=== PATIENT | female | born 1955 | race Caucasian/White ===

== ENCOUNTER 2017-08-19 08:35 | Observation (INO) | payer BC ==
--- NOTE | 2017-08-17 09:46 | HP ---
AMENDED REPORT NOW INCLUDES COSIGNER DESIGNATION - ESIGNED BEFORE ADJUSTMENTS CC: Dr. Brewer; Dr. Jumana Alcocer at [facility]; Nimo Person PA-C at [facility] * PREOPERATIVE HISTORY AND PHYSICAL: DATE OF ADMISSION/SURGERY: 08/19/17 DATE OF PREOPERATIVE HISTORY AND PHYSICIAN EXAMINATION: 08/16/17 This patient is scheduled for same-day surgery with overnight admission by Dr. Green on 08/19/17. ATTENDING SURGEON: Dr. Brinda Green * (dictated by Kellen Fabian NP). CHIEF COMPLAINT: Graves' disease. HISTORY OF PRESENT ILLNESS: The patient is a 62-year-old female recently evaluated by Dr. Green for Graves' disease. The patient reports that in February 2017, she was hospitalized and had abnormal thyroid lab work and was diagnosed with Graves' disease and referred to Dr. Brewer. She was started on methimazole. She reported symptoms of weight loss, weakness, night sweats, anxiety and agitation. She denies any family history of endocrinopathy and has not had radiation to the head and neck area. Dr. Green examined the patient and noted a diffusely enlarged and visible thyroid gland. Dr. Green has recommended bilateral subtotal thyroidectomy and has described the rationale for the surgery, the nature of the surgery, the overnight stay in the hospital, and the relevant risks and benefits. Today, I reviewed the expected postoperative care and recovery. The patient has had a chance to ask questions and stated that she understands the information and is satisfied with the answers given to her questions. She will sign surgical consent on the day of surgery. She underwent a thyroid ultrasound on 08/09/17, which revealed moderate thyroid gland enlargement with heterogeneous hypervascular parenchyma; no focal mass was seen. PAST MEDICAL HISTORY: Significant for hyperthyroidism, longstanding persistent atrial fibrillation, GERD, and smoking. PAST SURGICAL HISTORY: Cervical diskectomy approximately 10 years ago, laparoscopic cholecystectomy and tonsillectomy. CURRENT MEDICATIONS: 1. Metoprolol ER 50 mg p.o. daily. 2. Warfarin 6 mg daily every evening on Tuesdays, , Saturdays and Sundays and warfarin 6.5 mg every evening on Tuesday, Tuesday and Tuesday. She took her last dose of warfarin in preparation for surgery on 08/13/17 and a stat INR will be drawn on arrival on the day of surgery. 3. She also takes omeprazole 20 mg p.o. daily. 4. Methimazole 10 mg 2 tablets b.i.d. ALLERGIES: ANTIHISTAMINES caused some unspecified reaction. FAMILY HISTORY: Father with a history of heart attack and some type of cancer. Mother with a history of gallstones. No known family history of clotting disorders or bleeding tendencies or anesthesia complications. SOCIAL HISTORY: She lives alone. She is working. She smokes 1 to 2 cigarettes per day. She denies the use of alcohol or other substances. REVIEW OF SYSTEMS: Constitutional: No fevers or chills. She has experienced some weight loss since being diagnosed with hyperthyroidism. Endocrine: Hyperthyroidism as described in history of present illness, no diabetes. Hematologic: No easy bruising or bleeding while she has been on the warfarin. Respiratory: She is a smoker. She denies any dyspnea on exertion or chronic cough or hemoptysis. Cardiovascular: History of persistent atrial fibrillation with good rate control and anticoagulation and has been seen [facility]. Please see the accompanying notes and she has been deemed low risk for a major coronary event for thyroid surgery; her stress test in February 2017 revealed normal LV function and she has no hemodynamically significant valvular disease. She denies any anginal chest pain or palpitations. Gastrointestinal: No nausea, vomiting, diarrhea, GI bleeding, or constipation. No change in bowel habits. Genitourinary: No dysuria. Musculoskeletal: No chronic joint or back pain. Neurologic: No headache or blurred vision. Normal gait. No sensory problems. General: No previous anesthesia complications. No history of deep vein thrombosis or pulmonary embolism. No previous blood transfusions. PHYSICAL EXAMINATION GENERAL SURVEY: The patient is a 62-year-old female, well developed, well nourished, in no acute distress. VITAL SIGNS: Height 68 inches, weight 172 pounds, body mass index 26.1. Blood pressure 130/84, pulse 72 and regular, respiratory rate 18, temperature 97.2 tympanic. HEENT: Benign. NECK: Supple. Diffusely enlarged thyroid gland that is visible. No cervical lymphadenopathy. No supraclavicular lymphadenopathy. LUNGS: Breath sounds bilaterally clear and equal. HEART: Irregularly irregular. No murmurs or rubs appreciated. ABDOMEN: Active bowel sounds. Soft, nondistended, nontender throughout. No obvious masses or organomegaly. BACK: No CVA tenderness. PELVIC: Exam deferred. RECTAL: Exam deferred. EXTREMITIES: Warm without edema or skin ulcerations. NEUROLOGIC: Alert and oriented x3. Steady gait. SKIN: Warm, dry, intact. IMPRESSION: Thyrotoxicosis with diffuse goiter without thyrotoxic crisis or storm. PLAN: Same-day surgery admission with overnight extension to Dr. Green's service for bilateral subtotal thyroidectomy on 08/19/17. LUPILLO FABIAN, AGENT BASED MODELER [id number]/CPS #: [id number] [place]
[~2017-08-19 08:35] MED LIST: Buffered Lidocaine 0.9% SYRIN* 5 ML/SYR SYRINGE INTRADERM ONE; Famotidine IV* 10 MG/ML 2 ML (20 mg) IV ONE; Metoclopramide TAB* 10 MG PO ONE; Scopolamine 1.5 mg* PATCH TRANSDERM ONE
[2017-08-19] MEDS ORDERED: ceFAZolin 2 GM PREMIX (*) 2 GM/50 ML BAG IVPB ONE (08:53)
[2017-08-19] MEDS ORDERED: Metoclopramide TAB* 10 MG ONE (08:53)
[2017-08-19] MEDS ORDERED: Scopolamine 1.5 mg* PATCH ONE (08:53)
[2017-08-19] MEDS ORDERED: Heparin VIAL(*) 5000 UNITS/ML VIAL (FIVE THOUSAND) ONE (08:53)
[2017-08-19 09:20] LABS: INR 0.95 (0.77-1.02)
[2017-08-19] MEDS ORDERED: Propofol* 10 MG/ML 20 ML BTL IV PUSH ONE (09:36)
[2017-08-19] MEDS ORDERED: Ondansetron INJ* 2 MG/ML VIAL ONE (09:36)
[2017-08-19] MEDS ORDERED: Dexamethasone IV* 4 MG/ML 1 ML (4 MG) ONE (09:36)
[2017-08-19] MEDS ORDERED: fentaNYL* 50 MCG/ML 2 ML VIAL (100 MCG VIAL) ONE ×4 (09:36→15:16)
[2017-08-19] MEDS ORDERED: Lidocaine 2% PF * 5 ML VIAL ONE (09:36)
[2017-08-19] MEDS ORDERED: Cisatracurium* 2 MG/ML MDV 5 ML ONE (09:37)
[2017-08-19] MEDS ORDERED: Midazolam* 1 MG/ML 5 ML VIAL (5 MG) ONE (09:37)
[2017-08-19] MEDS ORDERED: Glycopyrrolate IV* 0.2 MG/ML 1 ML VIAL ONE (09:56)
[2017-08-19] MEDS ORDERED: Neostigmine Methylsulfate* 2 MG/2 ML SYRINGE ONE (09:56)
[2017-08-19] MEDS ORDERED: Phenylephrine 1% NASAL* 15 ML BOT ONE (10:14)
[2017-08-19] MEDS ORDERED: Bupivacaine 0.25% W/EPI* 10 ML SDV ONE (10:53)
[2017-08-19] MEDS ORDERED: Artificial Tear OPHTH.OINT* 3.5 GM ONE (11:14)
[2017-08-19] MEDS ORDERED: Bupivacaine 0.25% SDV PF* 10 ML VIAL INJ ONE (11:54)
[2017-08-19] MEDS ORDERED: Phenylephrine IV* 40 MCG/ML 10 ML SYRINGE ONE (12:06)
[2017-08-19] MEDS ORDERED: Ondansetron INJ* 2 MG/ML VIAL IV PRN ×2 (12:34→13:54)
[2017-08-19] MEDS ORDERED: Naloxone* 0.4 MG/ML 1 ML VIAL IV PRN (12:34)
[2017-08-19] MEDS ORDERED: Metoprolol Tartrate IV* 1 MG/ML 5 ML VIAL ONE (13:12)
[2017-08-19] MEDS ORDERED: Docusate CAP* 100 MG PO PRN (13:54)
[2017-08-19] MEDS ORDERED: Acetaminophen ADULT LIQ* 650 MG/20.3 ML UDC PO PRN (14:04)
--- NOTE | 2017-08-19 14:15 | OP ---
Operative Report - Blank - Operative Report Date of Operation: 08/19/17 Note: Brief Operative Note: Pre-op: Graves disease Post-op: Same Procedure: Subtotal thyroidectomy Surgeon: Dr. Green Boat Detailer: KAREY London Anesthesia: GETA EBL: 100 cc Drains: None Catheter: None Specimen: Thyroid gland Findings: See op note
[2017-08-19] MEDS: fentaNYL* 50 MCG/ML 2 ML VIAL (100 MCG VIAL) IV PRN ×4 (14:30→15:44)
[2017-08-19] MEDS ORDERED: HYDROcodone/ACET. 7.5/325 LIQ* 15 ML UDC ONE (15:16)
[2017-08-19] MEDS: HYDROcodone/ACET. 7.5/325 LIQ* 15 ML UDC PO PRN ×2 (15:18→21:23)
[2017-08-19] MEDS: Morphine VIAL* 4 MG/ML VIAL (1 ml vial) IV PRN (19:34)
[2017-08-19] MEDS ORDERED: Calcium Carbonate CHEW TAB* 500 MG (TUMS) PO SCH (22:00)
[2017-08-20] MEDS: Calcium Carbonate LIQ* 1,250 MG/5 ML UDC PO SCH ×3 (02:53→20:07)
--- NOTE | 2017-08-20 04:04 | OP ---
CC: [facility]; Dr. Ender Brewer; Nimo Person PA-C. OPERATIVE REPORT: DATE OF OPERATION: 08/19/17 DATE OF : 53 SURGEON: Brinda Green MD SHOPPING INVESTIGATOR: KAREY Hathaway and KAREY Barnett student PRE-OP DIAGNOSIS: Graves' disease. POST-OP DIAGNOSIS: Graves' disease. OPERATIVE PROCEDURE: Bilateral subtotal thyroidectomy. INDICATIONS: Ms. Smith is a 62-year-old woman recently diagnosed with Graves' disease prompting the plan for surgical intervention. DESCRIPTION OF PROCEDURE: She was brought to the operating room, placed on the OR table in a supine position and given general anesthesia. The neck was prepped and draped in usual sterile fashion. Af ter infiltrating with local anesthetic, an incision was made along the line that have been marked pre operatively. Subcutaneous tissue was then divided with electrocautery through the platysma muscle. F laps were then developed superiorly to the thyroid notch and inferiorly to the sternal notch. The st rap muscles were divided along the midline and then retracted laterally first over the right side of the gland. Dissection was begun in the superior pole where vessels that approached the gland first f rom the medial aspect were taken down between ligature and clip. This was made somewhat difficult by the friable nature of the vessels, which necessitated clipping sometimes rather than ligature. Ulti mately the superior pole of the right side was freed up adequately and then attention was turned to t he inferior pole. Here the individual vessels were divided with the ligature and then this mobility allowed the gland to be elevated anteriorly exposing the lateral vessels. These were divided individ ually as they approach gland and then a search was made for the recurrent laryngeal nerve, it should be mentioned that 2 structures consistent with parathyroid tissue were identified and preserved. The recurrent laryngeal nerve with likewise was identified and noted to pass very closely to the thyroid gland as it entered the trachea, but since this was recognized, the nerve was preserved throughout i ts course. Attachments of the gland to the trachea were taken down with clips in this area and ultim ately the gland was freed up enough to divide portion of it with electrocautery keeping clear of the nerve. This left a small amount of thyroid tissue in the right thyroid bed. The rest of the thyroid on the right side was elevated off the trachea and divided from the trachea using electrocautery unt il the far end of the isthmus was reached, then attention was turned to the left side. Here again ve ssels were quite friable and there is moderate amount of bleeding during the procedure but ultimately the upper pole was taken down in a similar fashion and then attention was turned to lower pole and h ere vessels were divided with ligature and then attention was turned to the middle portion of the gla nd. This has been difficult by ongoing friability of the vessels and we then having to go backup to the superior pole to release a few more attachments posteriorly, but once these were released there w as fair mobility of the gland and again the search was made in the middle portion for the nerve and t he parathyroid glands and one parathyroid on the left side was positively identified and the recurren t laryngeal nerve was positively identified, also traveling close to the thyroid gland. Careful diss ection of the thyroid gland from the trachea was undertaken and on the side almost all of the thyroid gland was able to be removed. Once it was free of the nerve, dissection from the trachea was accompl ished with electrocautery and the specimen was handed off as bilateral subtotal thyroidectomy. The wo und was inspected for hemostasis and irrigated copiously with saline to demonstrate adequate hemostas is. The right side had Surgicel placed in it while operating on the left side and the hemostasis on the right side appeared good. Some additional clips had to be placed on left side to obtain hemostasi s and then some Surgicel was placed on the left side as well. This appeared to produce excellent hem ostasis then closure was accomplished. The straps muscles were reapproximated with 3-0 Vicryl. The platysma muscle was reapproximated with 4-0 Vicryl and then the skin was closed with 4-0 Prolene in t he subcuticular fashion. Steri-Strips and a dry fluffy dressing were applied. All sponge and instrum ent counts were correct. The patient tolerated the procedure well and was transferred to Recovery in a stable condition. [id number]/[facility] #: [id number]
[2017-08-20] MEDS: HYDROcodone/ACET. 7.5/325 LIQ* 15 ML UDC PO PRN ×4 (04:53→23:56)
[2017-08-20 05:48] LABS: ABS Basophils 0 10^3/ul (0-0.2); ABS Eosinophils 0 10^3/ul (0-0.6); ABS Lymphocytes 1.4 10^3/ul (1.0-4.8); ABS Monocytes 0.6 10^3/ul (0-0.8); ABS Neutrophils 5.3 10^3/ul (1.5-7.7); ABS Nucleated RBC 0 10^3/ul; Eosinophil % 0.1 % (0-6); Hematocrit 31 % (35-47); Hemoglobin 10.5 g/dl (12.0-16.0); Lymphocyte % 19.6 % (25-47); Mean Corpuscular HGB Conc 33 g/dl (31-36); Mean Corpuscular Hemoglobin 27 pg (27-31); Mean Corpuscular Volume 79 fL (80-97); Nucleated Red Blood Cells % 0; Platelet Count 161 10^3/ul (150-450); Red Blood Count 3.96 10^6/ul (4.00-5.40); Red Cell Distribution Width 17 % (10.5-15); White Blood Count 7.3 10^3/ul (3.5-10.8)
[2017-08-20 06:08] LABS: EGFR Non-African American 137.2 (>60)
[2017-08-20] MEDS: Omeprazole CAP* 20 MG PO SCH (07:26)
[2017-08-20] MEDS: Morphine VIAL* 4 MG/ML VIAL (1 ml vial) IV PRN (08:23)
[2017-08-20] MEDS: Metoprolol Succinate XL TAB* 50 MG PO SCH (09:18)
--- NOTE | 2017-08-20 09:24 | PN ---
Progress Note - Progress Note Date of Service: 08/20/17 Note: Surgery Ms. Smith denies problems. She denies pain, numbness, tingling. Vital Signs 08/19/17 08/19/17 08/19/17 14:03 14:04 14:06 Temperature Pulse Rate 104 97 96 Respiratory Rate Blood Pressure 155/121 157/117 (mmHg) O2 Sat by Pulse 97 97 96 Oximetry 08/19/17 08/19/17 08/19/17 14:07 14:10 14:15 Temperature 98.1 F Pulse Rate 92 98 97 Respiratory 14 Rate Blood Pressure 157/117 166/91 157/125 (mmHg) O2 Sat by Pulse 98 95 97 Oximetry 08/19/17 08/19/17 08/19/17 14:19 14:21 14:26 Temperature Pulse Rate 94 93 97 Respiratory 13 10 12 Rate Blood Pressure 170/107 151/99 163/102 (mmHg) O2 Sat by Pulse 97 97 97 Oximetry 08/19/17 08/19/17 08/19/17 14:30 14:31 14:46 Temperature Pulse Rate 96 93 Respiratory 22 12 15 Rate Blood Pressure 167/111 165/112 (mmHg) O2 Sat by Pulse 96 93 Oximetry 08/19/17 08/19/17 08/19/17 14:50 15:00 15:01 Temperature Pulse Rate 89 93 Respiratory 18 18 13 Rate Blood Pressure 135/99 (mmHg) O2 Sat by Pulse 90 94 Oximetry 08/19/17 08/19/17 08/19/17 15:16 15:18 15:31 Temperature Pulse Rate 83 82 Respiratory 15 14 17 Rate Blood Pressure 149/98 155/93 (mmHg) O2 Sat by Pulse 95 97 Oximetry 08/19/17 08/19/17 08/19/17 15:44 15:46 16:08 Temperature 97.3 F Pulse Rate 75 87 Respiratory 20 16 20 Rate Blood Pressure 146/73 145/91 (mmHg) O2 Sat by Pulse 92 99 Oximetry 08/19/17 08/19/17 08/19/17 16:12 16:18 17:00 Temperature 97.3 F 98.9 F Pulse Rate 87 77 Respiratory 18 20 16 Rate Blood Pressure 145/91 140/78 (mmHg) O2 Sat by Pulse 99 94 Oximetry 08/19/17 08/19/17 08/19/17 18:00 19:08 19:14 Temperature 98.1 F 97.2 F Pulse Rate 85 76 Respiratory 16 18 18 Rate Blood Pressure 121/72 137/85 (mmHg) O2 Sat by Pulse 96 98 Oximetry 08/19/17 08/19/17 08/19/17 19:20 19:34 20:06 Temperature Pulse Rate Respiratory 18 18 18 Rate Blood Pressure (mmHg) O2 Sat by Pulse Oximetry 08/19/17 08/19/17 08/19/17 20:13 21:23 21:37 Temperature 98.2 F Pulse Rate 80 Respiratory 16 18 18 Rate Blood Pressure 140/68 (mmHg) O2 Sat by Pulse 95 Oximetry 08/19/17 08/20/17 08/20/17 22:18 01:31 01:58 Temperature 98.8 F 97.7 F Pulse Rate 86 61 Respiratory 18 18 Rate Blood Pressure 143/68 111/63 (mmHg) O2 Sat by Pulse 97 98 98 Oximetry 08/20/17 08/20/17 08/20/17 02:58 04:48 04:53 Temperature 98.0 F Pulse Rate 71 Respiratory 18 18 18 Rate Blood Pressure 142/67 (mmHg) O2 Sat by Pulse 98 Oximetry 08/20/17 08/20/17 08/20/17 07:25 07:30 07:31 Temperature 98.9 F Pulse Rate 88 Respiratory 16 18 18 Rate Blood Pressure 134/96 (mmHg) O2 Sat by Pulse 95 98 Oximetry 08/20/17 08:23 Temperature Pulse Rate Respiratory 20 Rate Blood Pressure (mmHg) O2 Sat by Pulse Oximetry Incision site is clean and dry Neg. Chvostek's sign Intake & Output 08/19/17 08/20/17 08/20/17 22:59 06:59 14:59 Intake Total 560 1180 Output Total 900 650 Balance -340 530 Intake: IV Fluids 980 LR 980 Oral 560 200 Output: Urine 900 650 Laboratory Results - last 24 hr 08/19/17 08/19/17 08/20/17 14:25 20:15 02:20 WBC RBC Hgb Hct MCV MCH MCHC RDW Plt Count MPV Neut % (Auto) Lymph % (Auto) [place] % (Auto) Eos % (Auto) Baso % (Auto) Absolute Neuts (auto) Absolute Lymphs (auto) Absolute Monos (auto) Absolute Eos (auto) Absolute Basos (auto) Absolute Nucleated RBC Nucleated RBC % Sodium Potassium Chloride Carbon Dioxide Anion Gap BUN Creatinine Est GFR ( Amer) Est GFR (Non-Af Amer) BUN/Creatinine Ratio Glucose Calcium 8.7 8.2 L 7.8 L 08/20/17 08/20/17 08/20/17 05:30 05:30 08:08 WBC 7.3 RBC 3.96 L Hgb 10.5 L Hct 31 L MCV 79 L MCH 27 MCHC 33 RDW 17 H Plt Count 161 MPV 8.0 Neut % (Auto) 72.1 Lymph % (Auto) 19.6 L [place] % (Auto) 7.8 H Eos % (Auto) 0.1 Baso % (Auto) 0.4 Absolute Neuts (auto) 5.3 Absolute Lymphs (auto) 1.4 Absolute Monos (auto) 0.6 Absolute Eos (auto) 0 Absolute Basos (auto) 0 Absolute Nucleated RBC 0 Nucleated RBC % 0 Sodium 140 Potassium 3.4 L Chloride 108 Carbon Dioxide 26 Anion Gap 6 BUN 9 Creatinine 0.46 L Est GFR ( Amer) 166.0 Est GFR (Non-Af Amer) 137.2 BUN/Creatinine Ratio 19.6 Glucose 128 H Calcium 7.9 L 7.9 L POD#1 s/p bilateral subtotal thyroidectomies doing well but somewhat hypocalcemic. Will continue to check calciums until it seems to be responding to calcium suspension, then can go home. CLFoster
[2017-08-20] MEDS: Potassium Chloride LIQUID* 20 MEQ PACKET PO SCH (09:59)
[2017-08-21] MEDS: Calcium Carbonate LIQ* 1,250 MG/5 ML UDC PO SCH ×2 (03:29→11:47)
[2017-08-21] MEDS: HYDROcodone/ACET. 7.5/325 LIQ* 15 ML UDC PO PRN (06:31)
--- NOTE | 2017-08-21 07:25 | PN ---
Progress Note - Progress Note Date of Service: 08/21/17 Note: Surgery Ms. Smith denies any problems. She is not having pain and is not experiencing numbness or tingling. The scopolamine patch fell off this morning. Vital Signs 08/20/17 08/20/17 08/20/17 07:25 07:30 07:31 Temperature 98.9 F Pulse Rate 88 Respiratory 16 18 18 Rate Blood Pressure 134/96 (mmHg) O2 Sat by Pulse 95 98 Oximetry 08/20/17 08/20/17 08/20/17 08:23 09:55 11:20 Temperature Pulse Rate Respiratory 20 18 18 Rate Blood Pressure (mmHg) O2 Sat by Pulse Oximetry 08/20/17 08/20/17 08/20/17 11:56 14:08 15:12 Temperature 98.3 F 98.3 F Pulse Rate 90 86 Respiratory 16 20 18 Rate Blood Pressure 106/55 125/70 (mmHg) O2 Sat by Pulse 98 98 Oximetry 08/20/17 08/20/17 08/20/17 16:00 17:23 19:51 Temperature 97.6 F Pulse Rate 78 Respiratory 20 20 Rate Blood Pressure 125/75 (mmHg) O2 Sat by Pulse 98 98 Oximetry 08/20/17 08/20/17 08/20/17 20:14 20:30 21:27 Temperature Pulse Rate Respiratory 20 20 18 Rate Blood Pressure (mmHg) O2 Sat by Pulse Oximetry 08/20/17 08/20/17 08/21/17 23:50 23:56 02:00 Temperature 98.8 F Pulse Rate 94 Respiratory 16 16 18 Rate Blood Pressure 154/87 (mmHg) O2 Sat by Pulse 98 Oximetry 08/21/17 08/21/17 03:19 06:31 Temperature 98.2 F Pulse Rate 91 Respiratory 22 18 Rate Blood Pressure 124/77 (mmHg) O2 Sat by Pulse 94 Oximetry incision: clean and dry Neg. Chvostek's sign Laboratory Results - last 24 hr 08/20/17 08/20/17 08/20/17 08:08 13:50 20:17 Calcium 7.9 L 7.8 L 7.8 L 08/21/17 05:28 Calcium 7.2 L A/P: POD#2 s/p bilateral subtotal thyroidectomies. Calcium has not been responding to oral replacement, which should be better without the scopolamine, but which needs addressing. Will provide a dose of IV Calcium. Continue to monitor with q6H checks.
[2017-08-21] MEDS ORDERED: Calcium CHLORIDE 10% SYRINGE* 1 GM in D5W 100 ML BAG* 100 ML IV ONE (07:30)
[2017-08-21] MEDS: Omeprazole CAP* 20 MG PO SCH (07:49)
[2017-08-21] MEDS: Potassium Chloride LIQUID* 20 MEQ PACKET PO SCH (08:24)
[2017-08-21] MEDS: Metoprolol Succinate XL TAB* 50 MG PO SCH (08:32)
[2017-08-21] MEDS ORDERED: Calcitriol CAP* 0.25 MCG PO SCH (09:00)
[2017-08-21 13:20] VITALS: BP 129/85
[2017-08-22] MEDS ORDERED: Scopolamine PATCH Remove* 1 NOTE MISC PATCH OFF ONE (06:00)
--- NOTE | 2017-08-22 10:08 | DS ---
CC: Dr. Ender Brewer; Nimo Person PA-C. * DISCHARGE SUMMARY: DATE OF ADMISSION: 08/19/17 DATE OF DISCHARGE: 08/21/17 ADMISSION DIAGNOSIS: Thyrotoxicosis with goiter. DISCHARGE DIAGNOSIS: Thyrotoxicosis with goiter. PROCEDURE: During the hospitalization included bilateral subtotal thyroidectomy. HOSPITAL COURSE: Ms. Smith is a 62-year-old woman with a history of Graves ' disease prompting a plan for surgical intervention. She underwent bilateral subtotal thyroidectomy on the date of admission and then was admitted for overnight observation of her calcium. Her calcium did not come up appropriately until the 2nd day postoperatively when after discontinuing scopolamine and given her a dose of IV calcium, she had an appropriate rise in calcium level. She was, therefore, considered stable for discharge and was discharged to home with instructions to follow up as an outpatient. [id number]/[facility]PS #: [id number] MTDD
== END 2017-08-21 15:50 | disposition home or self-care (01) ==
LOC: OR 08:35 → EDSTATUS 10:45 → SSU 16:13
PROVIDERS: ADMIT Surgery; ATTEND Surgery
PROC: 0GBH0ZZ Excision of Right Thyroid Gland Lobe, Open Approach (ICD-10-PCS; 2017-08-19)
PROC: 0GBJ0ZZ Excision of Thyroid Gland Isthmus, Open Approach (ICD-10-PCS; 2017-08-19)
PROC: 0GBG0ZZ Excision of Left Thyroid Gland Lobe, Open Approach (ICD-10-PCS; principal; 2017-08-19 10:45)
DX: E05.00 Thyrotoxicosis with diffuse goiter without thyrotoxic crisis or storm (principal); F17.210 Nicotine dependence, cigarettes, uncomplicated; Z79.01 Long term (current) use of anticoagulants; I48.91 Unspecified atrial fibrillation; Z87.19 Personal history of other diseases of the digestive system; E05.90 Thyrotoxicosis, unspecified without thyrotoxic crisis or storm
CPT/HCPCS: 36415; 80048; 82040; 82310; 82330; 85025; 85610; 88307; A9270-GY; G0378; J0690; J1100; J1644; J2250; J2270; J2405; J2704; J3010; J3490

== ENCOUNTER 2017-08-22 08:28 | Inpatient (IN) | payer BC ==
--- OUTSIDE RECORDS SUMMARY | 2017-08-22 12:35 | XMS REPORT ---
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 Active Onset: 12/18/2010 Premature beats Josie Ji M.D. Active Onset: 12/18/2010 Candidal vulvovaginitis Josie Ji M.D. Active Onset: 03/05/2011 Hyperlipidemia Josie Ji M.D. Active Onset: 03/05/2011 Coronary arteriosclerosis Josie Ji M.D. Active Onset: 03/10/2011 Chest pain Mihir Milner M.D. Active Onset: 03/10/2011 Benign essential hypertension Mihir Milner M.D. Active Onset: 03/10/2011 Dyspnea Mihir Milner M.D. 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 they are the reason she wants to stop smoking and keep on going employed for 10 years at [employer] 02/08 ppd x 35 years ( quit 02/2011) hx of etoh abuse occasional mj 5 cups of coffee daily Allergies, Adverse Reactions, Alerts Date Description Reaction Status Severity Comments 12/18/2010 Antihistamines diarrhea active Mild to Moderate 12/18/2010 NKDA inactive Medications Medication Date Status Form Strength Qnty SIG Indications Ordering Provider Metoprolol / Active Tablets ER 50mg 1 by mouth Unknown Succinate ER 0000 24HR every day Omeprazole / Active Capsules 20mg 1 by mouth Unknown 0000 DR every day Warfarin Sodium / Active Tablets 6mg take 1 Unknown 0000 tablet by mouth once daily every evening or as directed. M-W-F 6.5 mg and 6mg other days Methimazole / Active Tablets 10mg Take Two Unknown 0000 Tablets By Mouth Twice A Day Aspirin 03/10/ Hx Tablets DR 81mg 90tabs 1 po qd Rejitacarolina Milner M.D. Nitrostat 03/10/ Hx Tablets 0.4mg 50tabs one sl 414.0 Neymar 2012 Sub q5min up Khalif Sanchez, to 3 doses M.DDiann,FACP prn Simvastatin 03/05/ Hx Tablets 40mg 90tabs 1 po qhs 272.4 Josie Ji M.D. Nitroglycerin 03/05/ Hx Solution 0.4mg/Spra 4.900g [place] 1 414.0 Josie Lingual 2012 - y m spray Garrison 03/10/ under the Rafael 2012 tongue one time for chest pain Lisinopril 03/05/ Hx Tablets 5mg 30tabs take 1 414.0 Josie [place] tablet Garrison orally M.DDiann once a day Nicotine 12/18/ Hx Patches 14mg/24HR 14unit apply 1 305.1 Josie 2010 - 24HR s patch Garrison 03/05/ topically M.DDiann 2011 every 24 hours for two weeks than switch to 7mg Nicotine Patches 7mg/24HR 7units apply one 305.1 Josie 2010 - 24HR patch Ji, 03/05/ daily for .D2011 1 week, then stop. Diflucan Hx Tablets 150mg 6tabs 1 tablet 112.1 Josie 2010 - daily for Ji, 03/05/ 3 days M.D. 2011 Gabapentin Hx Tablets 600mg 180tab take one Unknown 0000 s tablet by mouth four times a day Methocarbamol / Hx Tablets 750mg 30tabs take one Unknown 0000 to two tablets by mouth every 6 hrs as needed-max imum daily dose of 5 per day. Pain Aid / Hx as needed Unknown 0000 Furosemide / Hx Tablets 20mg 1 by mouth Unknown 0000 every day Warfarin Sodium / Hx Tablets 3.5mg 1 tab Unknown 0000 every night or as directed Immunizations CPT Code Status Date Vaccine Lot # [id number] Given 12/18/2010 Pneumonia Vaccine [id number] Given 12/18/2010 Tdap - Tetanus/Diptheria/Acellular Pertussis [id number] Given 12/18/2010 Influenza Virus 3Yrs & Over [id number] Vital Signs Date Vital Result Comment 08/02/2017 Height 68 inches 5'8" Weight 172.00 lb Heart Rate 100 /min BP Systolic Sitting 120 mmHg BP Diastolic Sitting 82 mmHg Respiratory Rate 18 /min Body Temperature 98.0 F BMI (Body Mass Index) 26.1 kg/m2 03/19/2011 Height 68 inches 5'8" Weight 239.00 lb Heart Rate 52 /min irregular BP Systolic Sitting 130 mmHg R BP Diastolic Sitting 74 mmHg R BMI (Body Mass Index) 36.3 kg/m2 03/10/2011 Height 68 inches 5'8" Weight 242.00 lb Heart Rate 62 /min BP Systolic Sitting 140 mmHg BP Diastolic Sitting 80 mmHg BMI (Body Mass Index) 36.8 kg/m2 03/05/2011 Height 66.75 inches 5'6.75" Weight 239.00 lb Heart Rate 70 /min BP Systolic Sitting 138 mmHg BP Diastolic Sitting 82 mmHg BMI (Body Mass Index) 37.7 kg/m2 12/18/2010 Height 66.75 inches 5'6.75" Weight 232.00 lb Heart Rate 68 /min BP Systolic Sitting 132 mmHg BP Diastolic Sitting 80 mmHg O2 % BldC Oximetry 95 % at rest BMI (Body Mass Index) 36.6 kg/m2 Results Test Date Test Result H/L Range Note Cath Panel 03/10/2011 PTT (Aptt) 28.7 25.15-38.53 CBC With Manual Diff 03/10/2011 White Blood Count 8.3 CUMM 4.8-10.8 Red Cell Count 4.15 CUMM Low 4.2-5.4 Hemoglobin 12.9 g/dL 12.0-16.0 Hematocrit 37 % 35-47 Mean Corpuscular Volume 89 um3 79-97 Mean Corpuscular Hemoglob 31 pg 27-31 Mean Corpuscular HGB Cone 35 g/dL 32-36 Redcell Distribution WDTH 14 % 10.5-15 Platelet Count 240 CUMM 150-450 Mean Platelet Volume 9.2 um3 7.4-10.4 Polysegmented Neutrophil 60 % 38-83 Band Neutrophil 1 % 0-8 Lymphocyte 35 % 25-47 Monocyte 3 % 0-13 Eosinophil 1 % 0-6 Absolute Neutrophil Count 5.0 RBC Morphology NORMAL Basic Metabolic Panel 03/10/2011 Sodium 138 mmol/L 135-145 Potassium 4.0 mmol/L 3.5-5.0 Chloride 108 mmol/L 101-111 Co2 (Carbon Dioxide) 23.0 mmol/L 22-32 Anion Gap 7.0 mmol/L 2-11 1 Glucose 146 mg/dL High 70-100 BUN 21 mg/dL 6-24 Creatinine 0.9 mg/dL 0.50-1.40 One Over Creatinine 1.11 BUN/Creatinine Ratio 23.3 High 8-20 Calcium 9.1 mg/dL 8.1-9.9 eGFR Non- 64.5 > 60 eGFR 83.0 > 60 2 Protime 03/10/2011 Inr 0.94 0.88-1.13 3 Protime 11.1 SEC 10.3-13.5 4 Laboratory test finding 12/24/2010 TSH 0.82 MIU/ML 0.34-5.60 Thyroxine Free 1.05 ng/dL 0.61-1.24 Lipid Profile (Trig/Chol/HDL) 12/24/2010 Triglyceride 67 mg/dL 40-200 Cholesterol 229 mg/dL High Less Than 200 5 High Density Lipoprotein 50 mg/dL 40-60 6 Cholesterol/HDL Ratio 4.58 AVERAGE High 1-4.44 Low Density Lipoprotein 166 mg/dL High Less Than 100 7 Comp Metabolic Panel 12/24/2010 Sodium 138 mmol/L 135-145 Potassium 4.3 mmol/L 3.5-5.0 Chloride 107 mmol/L 101-111 Co2 (Carbon Dioxide) 25.0 mmol/L 22-32 Anion Gap 6.0 mmol/L 2-11 8 Glucose 97 mg/dL 70-100 BUN 10 mg/dL 6-24 Creatinine 0.8 mg/dL 0.50-1.40 One Over Creatinine 1.25 BUN/Creatinine Ratio 12.5 8-20 Calcium 8.9 mg/dL 8.1-9.9 Total Protein 6.5 GM/DL 6.2-8.1 Albumin 3.8 GM/DL 3.6-5.4 Globulin 2.7 GM/DL 2-4 Albumin/Globulin Ratio 1.4 1-3 Bilirubin Total 0.8 mg/dL 0.4-1.5 9 Alkaline Phosphatase 66 U/L 30-110 Alt (SGPT) 14 U/L 14-54 Ast (Sgot) 16 U/L 12-42 eGFR Non- 74.2 > 60 eGFR 95.4 > 60 10 Lipid Panel - [facility] 12/24/2010 CPK (Creatine Kinase) 77 U/L 0-170 Urinalysis 12/18/2010 Ua Color YELLOW Yellow Appearance-Urine CLEAR Clear Specific [place]-Ur 1.012 1.010-1.030 Esterase-Urine NEGATIVE Negative Nitrite NEGATIVE Negative Zioncsgavigg-Gu-EDU NEGATIVE Negative Protein-Urine NEGATIVE Negative PH-Urine 5.5 5-9 Blood-Urine NEGATIVE Negative Ketones-Urine TRACE Negative Bilirubin-Ur NEGATIVE Negative Glucose-Urine NEGATIVE Negative Laboratory test finding 12/18/2010 Cytology <SEE NOTE> 11 1 Anion gap measurement may be of limited value in the presence of any alkalosis, especially in a combined acid base disorder. . 2 Because ethnic data is not always readily available, this report includes an eGFR for both -Americans and non- Americans. The National Kidney Disease Education Program (NKDEP) does not endorse the use of the MDRD equation for patients that are not between the ages of 18 and 70, are , have extremes of body size, muscle mass, or nutritional status, or are non- or non-. According to the National Kidney Foundation, irrespective of diagnosis, the stage of the disease is based on the level of kidney function: Stage Description GFR(mL/min/1.73 m(2)) 1 Kidney damage with normal or decreased GFR 90 2 Kidney damage with mild decrease in GFR 60-89 3 Moderate decrease in GFR 30-59 4 Severe decrease in GFR 15-29 5 Kidney failure <15 (or dialysis) 3 Recommended INR for Patients on Oral Anticoagulants Prophylaxis 2.0 - 3.0 Treatment of thrombosis 2.0 - 3.0 Prevention of embolism 2.0 - 3.0 Prevention of embolism from prosthetic heart valves 2.5 - 3.5 4 DIAGNOSIS,TREATMENT,AND THERAPY MUST BE BASED ON THE INR VALUE ALONE. 5 CHOLESTEROL INTERPRETATION: Desirable: Less than 200 MG/DL Borderline-High Risk: 200-239 MG/DL High-Risk: 240 MG/DL and over 6 HDL INTERPRETATION: Undesirable: High Risk: Less than 40 MG/DL Desirable: Low Risk: Greater than 60 MG/DL 7 LDL INTERPRETATION: Low Risk Optimal Level: LDL Less than 100 MG/DL Near or Above Optimal: LDL 100-129 MG/DL Borderline High Risk: LDL 130-159 MG/DL High Risk: LDL 160-189 MG/DL Very High Risk: LDL Greater than 189 MG/DL 8 Anion gap measurement may be of limited value in the presence of any alkalosis, especially in a combined acid base disorder. . 9 A metabolite of Naproxen, O-desmethylnaproxen, has been shown to interfere with the Jendrassik-Stonega method for measuring total bilirubin. Samples from patients who have taken Naproxen have shown spurious elevation in total bilirubin levels. 10 Because ethnic data is not always readily available, this report includes an eGFR for both -Americans and non- Americans. The National Kidney Disease Education Program (NKDEP) does not endorse the use of the MDRD equation for patients that are not between the ages of 18 and 70, are , have extremes of body size, muscle mass, or nutritional status, or are non- or non-. According to the National Kidney Foundation, irrespective of diagnosis, the stage of the disease is based on the level of kidney function: Stage Description GFR(mL/min/1.73 m(2)) 1 Kidney damage with normal or decreased GFR 90 2 Kidney damage with mild decrease in GFR 60-89 3 Moderate decrease in GFR 30-59 4 Severe decrease in GFR 15-29 5 Kidney failure <15 (or dialysis) 11 ---- RUN DATE: 12/21/10 [facility] NMI LIVE PAGE 1 RUN TIME: 1510 Specimen Inquiry RUN USER: INTERFACE -- Name: KRYSTINASABRINA A Status: REG REF Re12/18/10 Age/Sex: 55/F Unit#: [id number] Location: [facility] : 53 -- Specimen: [id number] SOUT Spec Date: 12/18/[address]: Josie Ji MD Spec Type: CYTOLOGY Received: 12/21/10-1049 Copies to: SOURCE ECTOCERVICAL/ENDOCERVICAL Thin Prep with Reflex HPV Test PATIENT INFORMATION ACTUAL COLLECTION DATE: 12/18/10 ? No POST MENOPAUSAL? Yes HYSTERECTOMY? No PATIENT HISTORY: Last menstrual period 2005 ADEQUACY OF SPECIMEN Satisfactory for evaluation * Transformation zone component identified * DIAGNOSIS NEGATIVE FOR INTRAEPITHELIAL LESION OR MALIGNANCY * This Pap test was evaluated with the assistance of the ThinPrep Pap Test Imaging System. The Pap Smear is a screening test designed to aid in the detection of premalign ant and malignant conditions of the uterine cervix. It is not a diagnostic procedure a nd should not be used as the sole means of detecting cervical cancer. Both false- positiv e and false-negative reports do occur. Depending on your risk status, a Pap smear linda uld be obtained and evaluated every one to three years. Initial evaluation performed by Andrew LOPEZ(ASCP) 12/21/10 Final Interpretation electronically signed by: Andrew LOPEZ(ASCP) 12/21/10 1510 -- -- DEPARTMENT OF PATHOLOGY, [address] [place] [address] [facility] Permit #[id number] Galileo Yousif M.D. Director Rosa Maria Bui M.D. Dehydration Unit Operator Dir araceli -- Procedures Date CPT Code Description Status 03/12/2011 24849 Left Heart Cath. Incl S/I Coronaries, Angio S/I V Gram Completed If Done 03/12/2011 84970 Cath PLMT&NJX L Ventriculog Img S&I Completed 03/12/2011 53494 Left Health Catheterization W/Inj For Left Completed Ventriculography,S&I 02/25/2011 24838 Treadmill Interp/Report Only Completed 02/25/2011 36019 Stress Test Supervsn W/Out I/R Completed 02/24/2011 21202 EKG, Interpretation Only Completed 02/10/2011 Mammogram Completed 01/07/2011 33902 ECHO Transthoracic, Real-Time 2D With Doppler And Color Completed Flow 12/30/2010 20872 ECHO Stress Test Incl Perf Contiuous ekg Monitoring Completed W/Phys Superv 12/29/2010 05165 Holter Monitor Review (24 hr)dr review & interp only Completed 12/28/2010 39920 Holter Monitor Completed 12/18/2010 57185 EKG Tracing & Interpretation Completed Encounters Type Date Location Provider CPT E/M Dx Office Visit 03/19/2011 3:40p [facility] Mihir SDiann Milner, 38187 401.1 M.D. 414.0 272.4 Office Visit 03/12/2011 11:30a [facility] Rejitaybkeith S. Perlaah, 13935 794.31 M.D. 786.50 427.69 272.4 401.1 Office Visit 03/10/2011 11:00a [facility] Rejitaybkeith SDiann Milner, 15766 786.50 M.D. 401.1 786.05 Office Visit 03/05/2011 3:40p [facility] - Josie Ji M.D. 04853 272.4 [place] 305.1 414.0 Office Visit 02/25/2011 8:30a [facility] Mihir Milner, 09643 794.31 M.D. 786.50 427.69 401.1 272.4 Office Visit 12/30/2010 12:00p [facility] Kirtkeith Milner, 36700 427.69 M.D. 786.50 794.31 Office Visit 12/18/2010 11:00a DO Not Use [facility] Josie Ji M.D. 58263 305.1 427.69 V76.10 V76.2 V72.31 466.0 V04.81 V06.1 V03.82 112.1 401.9 Plan of Care Future Appointment(s):08/16/2017 11:00 am - Kellen Iqbal NP at [facility]08/19/2017 11:00 am - Brinda Green MD at [facility]08/02/2017 - Brinda Green MDE05.00 Thyrotoxicosis w diffuse goiter w/o thyrotoxic crisisFollow up:for H&P and post op
--- OUTSIDE RECORDS SUMMARY | 2017-08-22 12:35 | XMS REPORT ---
:1955 External Reference #:[id number] Author Organization [facility] Address [address] [place] [address] Phone [phone] Care Team Providers Name Role Phone Ender Brewer MD Primary Care Physician Unavailable Payers Type Date Identification Numbers Payment Provider Subscriber Commercial Policy Number: [id number] BS Facets Sabrina A Sarah PayID: [id number] [address] [address] [place] [address] Problems Date Description Provider Status Onset: 12/18/2010 [...] Problem(s) Comments Father Cancer Father due to [place] () Social History Type Date Description Comments Marital Status Single Lives With Alone 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 they are the reason she wants to stop smoking and keep on going employed for 10 years at [employer] 1/ ppd x 35 years ( quit 02/2011) hx of etoh abuse occasional mj 5 cups of coffee daily Allergies, Adverse Reactions, Alerts Date Description Reaction Status Severity Comments 12/18/2010 Antihistamines diarrhea active Mild to Moderate 12/18/2010 NKDA inactive Medications Medication Date Status Form Strength Qnty SIG Indications Ordering Provider Hydrocodone 08/16/ Active Solution 7.5-325mg/ 240ml 10ml-15ml Kellen Bitartrate/Acet 2018 15ML by mouth B. 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 M-W-F 6.5 mg and 6mg other days (-sto pped) Methimazole / Active Tablets 10mg Take Two Unknown 0000 Tablets By Mouth Twice A Day Aspirin 03/10/ Hx Tablets DR 81mg 90tab 1 po qd Qutaybkeith Milner M.D. Nitrostat 03/10/ Hx Tablets 0.4mg 50tab one sl 414.0 Neymar 2012 Sub s q5min up Khalif Sanchez to 3 doses M.DDiann,FACP prn Simvastatin 03/05/ Hx Tablets 40mg 90tab 1 po qhs 272.4 Josie Ji M.D. Nitroglycerin 03/05/ Hx Solution 0.4mg/Spra 4.900 [place] 1 414.0 Josie Lingual 2011 - y gm spray Garrison 03/10/ under the M.Khalif 2012 tongue one time for chest pain Lisinopril 03/05/ Hx Tablets 5mg 30tab take 1 414.0 Josie daniels tablet Garrison orally M.DDiann once a day Nicotine 12/18/ Hx Patches 14mg/24HR 14uni apply 1 305.1 Josie2010 - 24HR ts patch Ji, 03/05/ topically M.D. 2011 every 24 hours for two weeks than switch to 7mg Nicotine Hx Patches 7mg/24HR 7unit apply one 305.1 Josie2010 - 24HR s patch Ji, 03/05/ daily for .2011 1 week, then stop. Diflucan Hx Tablets 150mg 6tabs 1 tablet 112.1 Josie 2010 - daily for Ji, 03/05/ 3 days M.D. 2011 Gabapentin / Hx Tablets 600mg 180ta take one Unknown 0000 bs tablet by mouth four times a day Methocarbamol / Hx Tablets 750mg 30tab take one Unknown 0000 s to two tablets by mouth every 6 hrs as needed-max imum daily dose of 5 per day. Pain Aid / Hx as needed Unknown 0000 Furosemide / Hx Tablets 20mg 1 by mouth Unknown 0000 every day Warfarin Sodium / Hx Tablets 3.5mg 1 tab Unknown 0000 every night or as directed Immunizations CPT Code Status Date Vaccine Lot # [id number] Given 12/18/2010 Pneumonia Vaccine [id number] 73437 Given 12/18/2010 Tdap - Tetanus/Diptheria/Acellular Pertussis [id number] 22582 Given 12/18/2010 Influenza Virus 3Yrs & Over [id number] Vital Signs Date Vital Result Comment 08/16/2017 Height 68 inches 5'8" Weight 172.00 lb Heart Rate 72 /min BP Systolic Sitting 130 mmHg BP Diastolic Sitting 84 mmHg Respiratory Rate 18 /min Body Temperature 97.2 F BMI (Body Mass Index) 26.1 kg/m2 08/02/2017 Height 68 inches 5'8" Weight 172.00 [...] Test Date Test Result H/L Range Note Basic Metabolic Panel 08/16/2017 Sodium 140 mmol/L 135-145 Potassium 4.9 mmol/L 3.5-5.0 Chloride 108 mmol/L 101-111 Co2 Carbon Dioxide 25 mmol/L 22-32 Anion Gap 7 mmol/L 2-11 Glucose 92 mg/dL 70-100 Blood Urea Nitrogen 15 mg/dL 6-24 Creatinine 0.55 mg/dL 0.51-0.95 BUN/Creatinine Ratio 27.3 High 8-20 Calcium 9.2 mg/dL 8.6-10.3 Egfr Non- 111.6 >60 Egfr 135.1 >60 1 CBC Auto Diff 08/16/2017 White Blood Count 6.0 10^3/uL 3.5-10.8 Red Blood Count 4.78 10^6/uL 4.00-5.40 Hemoglobin 12.4 g/dL 12.0-16.0 Hematocrit 38 % 35-47 Mean Corpuscular Volume 80 fL 80-97 Mean Corpuscular Hemoglobin 26 pg Low 27-31 Mean Corpuscular HGB Conc 33 g/dL 31-36 Red Cell Distribution Width 18 % High 10.5-15 Platelet Count 229 10^3/uL 150-450 Mean Platelet Volume 8.1 um3 7.4-10.4 Abs Neutrophils 3.5 10^3/uL 1.5-7.7 Abs Lymphocytes 1.8 10^3/uL 1.0-4.8 Abs Monocytes 0.5 10^3/uL 0-0.8 Abs Eosinophils 0.2 10^3/uL 0-0.6 Abs Basophils 0 10^3/uL 0-0.2 Abs Nucleated RBC 0 10^3/uL Granulocyte % 58.7 % 38-83 Lymphocyte % 30.3 % 25-47 Monocyte % 7.5 % High 0-7 Eosinophil % 2.9 % 0-6 Basophil % 0.6 % 0-2 Nucleated Red Blood Cells % 0 Cath Panel 03/10/2011 PTT (Aptt) 28.7 25.15-38.53 [...] mmol/L 22-32 Anion Gap 7.0 mmol/L 2-11 2 Glucose 146 mg/dL High 70-100 BUN 21 mg/dL 6-24 Creatinine 0.9 mg/dL 0.50-1.40 One Over Creatinine 1.11 BUN/Creatinine Ratio 23.3 High 8-20 Calcium 9.1 mg/dL 8.1-9.9 eGFR Non- 64.5 > 60 eGFR 83.0 > 60 3 Protime 03/10/2011 Inr 0.94 0.88-1.13 4 Protime 11.1 SEC 10.3-13.5 5 Laboratory test finding 12/24/2010 TSH 0.82 MIU/ML 0.34-5.60 Thyroxine Free 1.05 ng/dL 0.61-1.24 Lipid Profile (Trig/Chol/HDL) 12/24/2010 Triglyceride 67 mg/dL 40-200 Cholesterol 229 mg/dL High Less Than 200 6 High Density Lipoprotein 50 mg/dL 40-60 7 Cholesterol/HDL Ratio 4.58 AVERAGE High 1-4.44 Low Density Lipoprotein 166 mg/dL High Less Than 100 8 Comp Metabolic Panel 12/24/2010 Sodium 138 mmol/L 135-145 Potassium 4.3 mmol/L 3.5-5.0 Chloride 107 mmol/L 101-111 Co2 (Carbon Dioxide) 25.0 mmol/L 22-32 Anion Gap 6.0 mmol/L 2-11 9 Glucose 97 mg/dL 70-100 BUN 10 mg/dL 6-24 Creatinine 0.8 mg/dL 0.50-1.40 One Over Creatinine 1.25 BUN/Creatinine Ratio 12.5 8-20 Calcium 8.9 mg/dL 8.1-9.9 Total Protein 6.5 GM/DL 6.2-8.1 Albumin 3.8 GM/DL 3.6-5.4 Globulin 2.7 GM/DL 2-4 Albumin/Globulin Ratio 1.4 1-3 Bilirubin Total 0.8 mg/dL 0.4-1.5 10 Alkaline Phosphatase 66 U/L 30-110 Alt (SGPT) 14 U/L 14-54 Ast (Sgot) 16 U/L 12-42 eGFR Non- 74.2 > 60 eGFR 95.4 > 60 11 Lipid Panel - [facility] 12/24/2010 CPK (Creatine Kinase) 77 U/L 0-170 Urinalysis 12/18/2010 Ua Color YELLOW Yellow Appearance-Urine CLEAR Clear Specific [place]-Ur 1.012 1.010-1.030 Esterase-Urine NEGATIVE Negative Nitrite NEGATIVE Negative Hbeybfonshme-Ng-XWD NEGATIVE Negative Protein-Urine NEGATIVE Negative PH-Urine 5.5 5-9 Blood-Urine NEGATIVE Negative Ketones-Urine TRACE Negative Bilirubin-Ur NEGATIVE Negative Glucose-Urine NEGATIVE Negative Laboratory test finding 12/18/2010 Cytology <SEE NOTE> 12 1 Because ethnic data is not always readily [...] 15-29 5 Kidney failure <15 (or dialysis) 2 Anion gap measurement may be of limited value in the presence of any alkalosis, especially in a combined acid base disorder. . 3 Because ethnic data is not always readily [...] 15-29 5 Kidney failure <15 (or dialysis) 4 Recommended INR for Patients on Oral Anticoagulants Prophylaxis 2.0 - 3.0 Treatment of thrombosis 2.0 - 3.0 Prevention of embolism 2.0 - 3.0 Prevention of embolism from prosthetic heart valves 2.5 - 3.5 5 DIAGNOSIS,TREATMENT,AND THERAPY MUST BE BASED ON THE INR VALUE ALONE. 6 CHOLESTEROL INTERPRETATION: Desirable: Less than 200 MG/DL Borderline-High Risk: 200-239 MG/DL High-Risk: 240 MG/DL and over 7 HDL INTERPRETATION: Undesirable: High Risk: Less than 40 MG/DL Desirable: Low Risk: Greater than 60 MG/DL 8 LDL INTERPRETATION: Low Risk Optimal Level: LDL Less than 100 MG/DL Near or Above Optimal: LDL 100-129 MG/DL Borderline High Risk: LDL 130-159 MG/DL High Risk: LDL 160-189 MG/DL Very High Risk: LDL Greater than 189 MG/DL 9 Anion gap measurement may be of limited value in the presence of any alkalosis, especially in a combined acid base disorder. . 10 A metabolite of Naproxen, O-desmethylnaproxen, has been shown to interfere with the Jendrassik-Christiano method for measuring total bilirubin. Samples from patients who have taken Naproxen have shown spurious elevation in total bilirubin levels. 11 Because ethnic data is not always readily [...] 15-29 5 Kidney failure <15 (or dialysis) 12 ---- RUN DATE: 12/21/10 [facility] NMI LIVE PAGE 1 RUN TIME: 1510 Specimen Inquiry RUN USER: INTERFACE -- Name: SABRINA FLAHERTY Status: REG REF Re12/18/10 Age/Sex: 55/F Unit#: [id number] Location: [facility]. : [birth year] -- Specimen: [id number] SOUT Spec Date: 12/18/[address]: Josie [...] was evaluated with the assistance of the [employer]Prep Pap Test Imaging System. The Pap Smear [...] three years. Initial evaluation performed by Andrew LOPEZASCP) 12/21/10 Final Interpretation electronically signed by: Andrew LOPEZ(ASCP) 12/21/10 1510 -- -- DEPARTMENT OF PATHOLOGY, [address] [place] [address] [facility] Permit #[id number] Galileo Yousif M.D. Director Rosa Maria Bui M.D. Merchandising Coordinator Dir araceli -- Procedures Date CPT Code Description Status 03/12/2011 71430 Left Heart Cath. Incl S/I Coronaries, Angio S/I V Gram Completed If Done 03/12/2011 02166 Cath PLMT&NJX L Ventriculog Img S&I Completed 03/12/2011 40972 Left Health Catheterization W/Inj For Left Completed Ventriculography,S&I 02/25/2011 47812 Treadmill Interp/Report Only Completed 02/25/2011 59120 Stress Test Supervsn W/Out I/R Completed 02/24/2011 21554 EKG, Interpretation Only Completed 02/10/2011 Mammogram Completed 01/07/2011 79616 ECHO Transthoracic, Real-Time 2D With Doppler And Color Completed Flow 12/30/2010 50828 ECHO Stress Test Incl Perf Contiuous ekg Monitoring Completed W/Phys Superv 12/29/2010 98976 Holter Monitor Review (24 hr)dr lin & interp only Completed 12/28/2010 84594 Holter Monitor Completed 12/18/2010 39455 EKG Tracing & Interpretation Completed Encounters Type Date Location Provider CPT E/M Dx Office Visit 03/19/2011 3:40p [facility] Qutaybeh S. Tainaydphillip, 13557 401.1 M.D. 414.0 272.4 Office Visit 03/12/2011 11:30a [facility] Qutaybeh S. haydah, 05102 794.31 M.D. 786.50 427.69 272.4 401.1 Office Visit 03/10/2011 11:00a [facility] Qutaybeh S. haydah, 15070 786.50 M.D. 401.1 786.05 Office Visit 03/05/2011 3:40p [facility] Internal Medicine - Josie Ji M.D. 51601 272.4 [place] 305.1 414.0 Office Visit 02/25/2011 8:30a [facility] Qutaybkeith S. Tainaydah, 33259 794.31 M.D. 786.50 427.69 401.1 272.4 Office Visit 12/30/2010 12:00p [facility] Qutaybkeith S. Tainaydah, 31613 427.69 M.D. 786.50 794.31 Office Visit 12/18/2010 11:00a DO Not Use [facility] Ji M.D. 18492 305.1 427.69 V76.10 V76.2 V72.31 466.0 V04.81 V06.1 V03.82 112.1 401.9 Plan of Care Future Appointment(s):08/29/2017 10:30 am - KAREY Dodge at [facility]08/19/2017 11:00 am - Brinda Green MD at [facility]08/16/2017 - Kellen Iqbal, NPE05.00 Thyrotoxicosis w diffuse goiter w/o thyrotoxic crisisFollow up:please schedule a postop appt on with [id number] Encounter for other preprocedural examination
--- OUTSIDE RECORDS SUMMARY | 2017-08-22 12:35 | XMS REPORT ---
:1955 External Reference #:[id number] Author Organization [facility] Address [address] [place] [address] Phone [phone] Care Team Providers Name Role Phone Ender Brewer MD Primary Care Physician Unavailable Payers Type Date Identification Numbers Payment Provider Subscriber Commercial Policy Number: [id number] BS Facets Sabrina A Sarah PayID: [id number] [address] [address] [place] [address] Problems Date Description Provider Status Onset: 12/18/2010 Tobacco user Josie Ji M.D. Active Onset: 12/18/2010 Premature beats Josie Ji M.D. Active Onset: 12/18/2010 Candidal vulvovaginitis Joise Ji M.D. Active Onset: 03/05/2011 Hyperlipidemia Josie Ji M.D. Active Onset: 03/05/2011 Coronary arteriosclerosis Josie Ji M.D. Active Onset: 03/10/2011 Chest pain Mihir Milner M.D. Active Onset: 03/10/2011 Benign essential hypertension Mihir Milner M.D. Active Onset: 03/10/2011 Dyspnea Mihir Milner M.D. 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 they are the reason she wants to stop smoking and keep on going employed for 10 years at [employer] 1/ ppd x 35 years ( [...] B. 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 Nitroglycerin 03/05/ Hx Solution 0.4mg/Spra 4.900 [place] 1 414.0 Josie Lingual 2011 - y [...] CPT Code Status Date Vaccine Lot # [id number] Given 12/18/2010 Pneumonia Vaccine [id number] 90750 Given 12/18/2010 Tdap - Tetanus/Diptheria/Acellular Pertussis [id number] 98278 Given 12/18/2010 Influenza Virus 3Yrs & Over [id number] Vital Signs Date Vital Result Comment 08/16/2017 [...] Color YELLOW Yellow Appearance-Urine CLEAR Clear Specific [place]-Ur 1.012 1.010-1.030 Esterase-Urine NEGATIVE Negative Nitrite NEGATIVE Negative Tsvhxnkaeyvi-Wv-KED NEGATIVE Negative Protein-Urine NEGATIVE Negative PH-Urine 5.5 [...] (or dialysis) 12 ---- RUN DATE: 12/21/10 [facility] NMI LIVE PAGE 1 RUN TIME: 1510 Specimen Inquiry RUN USER: INTERFACE -- Name: SABRINA FLAHERTY Status: REG REF Re12/18/10 Age/Sex: 55/F Unit#: [id number] Location: [facility]. : 53 -- Specimen: [id number] SOUT Spec Date: 12/18/[address]: Josie [...] was evaluated with the assistance of the [employer] Pap Test Imaging System. The Pap Smear [...] 12/21/10 1510 -- -- DEPARTMENT OF PATHOLOGY, [address] [place] [address] [facility] Permit #[id number] Galileo Yousif M.D. Director Rosa Maria Bui M.D. Manager Loss Prevention Dir araceli -- Procedures Date CPT Code Description Status 03/12/2011 89668 Left Heart Cath. Incl S/I Coronaries, Angio S/I V Gram Completed If Done 03/12/2011 61045 Cath PLMT&NJX L Ventriculog Img S&I Completed 03/12/2011 86243 Left Health Catheterization W/Inj For Left Completed Ventriculography,S&I 02/25/2011 64717 Treadmill Interp/Report Only Completed 02/25/2011 87450 Stress Test Supervsn W/Out I/R Completed 02/24/2011 78241 EKG, Interpretation Only Completed 02/10/2011 Mammogram Completed 01/07/2011 58440 ECHO Transthoracic, Real-Time 2D With Doppler And Color Completed Flow 12/30/2010 38008 ECHO Stress Test Incl Perf Contiuous ekg Monitoring Completed W/Phys Superv 12/29/2010 23601 Holter Monitor Review (24 hr)dr lin & interp only Completed 12/28/2010 56452 Holter Monitor Completed 12/18/2010 20633 EKG Tracing & Interpretation Completed Encounters Type Date Location Provider CPT E/M Dx Office Visit 03/19/2011 3:40p [facility] Qutaybeh S. Tainaydphillip, 26808 401.1 M.D. 414.0 272.4 Office Visit 03/12/2011 11:30a [facility] Qutaybeh S. haydah, 97422 794.31 M.D. 786.50 427.69 272.4 401.1 Office Visit 03/10/2011 11:00a [facility] Qutaybeh S. haydah, 78915 786.50 M.D. 401.1 786.05 Office Visit 03/05/2011 3:40p [facility] Internal Medicine - Josie Ji M.D. 27856 272.4 [place] 305.1 414.0 Office Visit 02/25/2011 8:30a [facility] Qutaybkeith S. Tainaydah, 46805 794.31 M.D. 786.50 427.69 401.1 272.4 Office Visit 12/30/2010 12:00p [facility] Qutaybkeith S. Tainaydah, 19949 427.69 M.D. 786.50 794.31 Office Visit 12/18/2010 11:00a DO Not Use [facility] Ji M.D. 98448 305.1 427.69 V76.10 V76.2 V72.31 466.0 V04.81 V06.1 V03.82 112.1 401.9 Plan of Care Future Appointment(s):08/29/2017 10:30 am - KAREY Dodge at [facility]08/19/2017 11:00 am - Brinda Green MD at [facility]08/16/2017 - Kellen Iqbal, NPE05.00 Thyrotoxicosis w diffuse goiter w/o thyrotoxic crisisFollow up:please schedule a postop appt on with [id number] Encounter for other preprocedural examination
--- OUTSIDE RECORDS SUMMARY | 2017-08-22 12:35 | XMS REPORT ---
:1955 External Reference #:[id number] Author Organization [facility] Address [address] [address] Phone [phone] Care Team Providers Name Role Phone Ender Brewer MD Primary Care Physician Unavailable Payers Type Date Identification Numbers Payment Provider Subscriber Commercial Policy Number: [id number] BS Facets Sabrina A Sarah PayID: [id number] [address] [address] [place] [address] Problems Date Description Provider Status Onset: 12/18/2010 Tobacco user Josie iJ M.D. Active Onset: 12/18/2010 Premature beats Josie Ji M.D. Active Onset: 12/18/2010 Candidal vulvovaginitis Josie Ji M.D. Active Onset: 03/05/2011 Hyperlipidemia Josie iJ M.D. Active Onset: 03/05/2011 Coronary arteriosclerosis Josie Ji M.D. Active Onset: 03/10/2011 Chest pain Mihir Milner M.D. Active Onset: 03/10/2011 Benign essential hypertension Mihir Milner M.D. Active Onset: 03/10/2011 Dyspnea Mihir Milner M.D. 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 Nitroglycerin 03/05/ Hx Solution 0.4mg/Spra 4.900 [place] 1 414.0 Josie Lingual 2011 - y [...] CPT Code Status Date Vaccine Lot # [id number] Given 12/18/2010 Pneumonia Vaccine [id number] 34191 Given 12/18/2010 Tdap - Tetanus/Diptheria/Acellular Pertussis [id number] 98712 Given 12/18/2010 Influenza Virus 3Yrs & Over [id number] Vital Signs Date Vital Result Comment 08/16/2017 [...] 95.4 > 60 10 Lipid Panel - [facility] 12/24/2010 CPK (Creatine Kinase) 77 U/L 0-170 Urinalysis 12/18/2010 Ua Color YELLOW Yellow Appearance-Urine CLEAR Clear Specific [place]-Ur 1.012 1.010-1.030 Esterase-Urine NEGATIVE Negative Nitrite NEGATIVE Negative Tcsfrvakcfqy-Xk-LDF NEGATIVE Negative Protein-Urine NEGATIVE Negative PH-Urine 5.5 [...] has been shown to interfere with the Jendrassik-Dolores method for measuring total bilirubin. Samples from [...] (or dialysis) 11 ---- RUN DATE: 12/21/10 [facility] NMI LIVE PAGE 1 RUN TIME: 1510 Specimen Inquiry RUN USER: INTERFACE -- Name: SABRINA FLAHERTY Status: REG REF Re12/18/10 Age/Sex: 55/F Unit#: [id number] Location: [facility] : 53 -- Specimen: [id number] SOUT Spec Date: 12/18/[address]: Josie [...] was evaluated with the assistance of the [employer] Pap Test Imaging System. The Pap Smear [...] 12/21/10 1510 -- -- DEPARTMENT OF PATHOLOGY, [address] [place] [address] [facility] Permit #[id number] Galileo Yousif M.D. Director Rosa Maria Bui M.D. Eye Dropper Assembler Dir araceli -- Procedures Date CPT Code Description Status 03/12/2011 96266 Left Heart Cath. Incl S/I Coronaries, Angio S/I V Gram Completed If Done 03/12/2011 40226 Cath PLMT&NJX L Ventriculog Img S&I Completed 03/12/2011 13505 Left Health Catheterization W/Inj For Left Completed Ventriculography,S&I 02/25/2011 82744 Treadmill Interp/Report Only Completed 02/25/2011 11280 Stress Test Supervsn W/Out I/R Completed 02/24/2011 04111 EKG, Interpretation Only Completed 02/10/2011 Mammogram Completed 01/07/2011 22962 ECHO Transthoracic, Real-Time 2D With Doppler And Color Completed Flow 12/30/2010 52472 ECHO Stress Test Incl Perf Contiuous ekg Monitoring Completed W/Phys Superv 12/29/2010 17616 Holter Monitor Review (24 hr) review & interp only Completed 12/28/2010 65318 Holter Monitor Completed 12/18/2010 48227 EKG Tracing & Interpretation Completed Encounters Type Date Location Provider CPT E/M Dx Office Visit 03/19/2011 3:40p [facility] Mihir Milner, 17120 401.1 M.D. 414.0 272.4 Office Visit 03/12/2011 11:30a [facility] Mihir Milner, 14646 794.31 M.DDiann 786.50 427.69 272.4 401.1 Office Visit 03/10/2011 11:00a [facility] Mihir Milner, 02438 786.50 M.D. 401.1 786.05 Office Visit 03/05/2011 3:40p [facility] Internal Medicine - Josie Ji M.D. 75785 272.4 [place] 305.1 414.0 Office Visit 02/25/2011 8:30a [facility] Mihir Milner, 56209 794.31 M.D. 786.50 427.69 401.1 272.4 Office Visit 12/30/2010 12:00p [facility] Mihir Milner, 94795 427.69 M.D. 786.50 794.31 Office Visit 12/18/2010 11:00a DO Not Use [facility] M.[facility]. 28277 305.1 427.69 V76.10 V76.2 V72.31 466.0 V04.81 V06.1 V03.82 112.1 401.9 Plan of Care Future Appointment(s):08/29/2017 10:30 am - KAREY Dodge at [facility]08/19/2017 11:00 am - Brinda Green MD at [facility]08/16/2017 - Kellen Iqbal, NPE05.00 Thyrotoxicosis w diffuse goiter w/o thyrotoxic crisisFollow up:please schedule a postop appt on with [id number] Encounter for other preprocedural examination
[2017-08-22] MEDS ORDERED: Calcium CHLORIDE 10% SYRINGE* 1 GM in D5W 100 ML BAG* 100 ML IV ONE (13:15)
[2017-08-22] MEDS: HYDROcodone/ACET. 7.5/325 LIQ* 15 ML UDC PO PRN (14:50)
--- NOTE | 2017-08-22 16:20 | HP ---
H&P (Free Text) History and Physical: H & P Update Ms. Smith experienced tingling of her fingers this morning. Calcium was checked and found to be low. She is re-admitted for calcium repletion. She has been found to have irregular heart beat. HPI similar otherwise similar to H&P from recent admission. PMHx, ROS, SH, FH: unchanged Vital Signs - 12 hr Temp Pulse Resp BP Pulse Ox 08/22/17 14:50 16 08/22/17 13:11 16 08/22/17 12:46 98.4 F 121 20 121/76 98 08/22/17 12:43 98.4 F 123 20 121/76 98 Exam: healing incision at neck without signs infection Slightly positive [place] sign Laboratory Results - last 24 hr 08/22/17 14:09 Calcium 6.5 L A/P: hypocalcemia s/p thyroidectomy; admit replete calcium; will ask hospitalist to see regarding irreg HR. CLFoster
[2017-08-22 16:45] LABS: ABS Basophils 0 10^3/ul (0-0.2); ABS Eosinophils 0.2 10^3/ul (0-0.6); ABS Lymphocytes 2.5 10^3/ul (1.0-4.8); ABS Monocytes 0.6 10^3/ul (0-0.8); ABS Neutrophils 6.3 10^3/ul (1.5-7.7); ABS Nucleated RBC 0 10^3/ul; Eosinophil % 2.1 % (0-6); Hematocrit 36 % (35-47); Hemoglobin 11.9 g/dl (12.0-16.0); Lymphocyte % 25.9 % (25-47); Mean Corpuscular HGB Conc 33 g/dl (31-36); Mean Corpuscular Hemoglobin 26 pg (27-31); Mean Corpuscular Volume 79 fL (80-97); Nucleated Red Blood Cells % 0.1; Platelet Count 225 10^3/ul (150-450); Red Blood Count 4.52 10^6/ul (4.00-5.40); Red Cell Distribution Width 17 % (10.5-15); White Blood Count 9.7 10^3/ul (3.5-10.8)
[2017-08-22 16:49] LABS: INR 1.12 (0.77-1.02)
[2017-08-22 17:07] LABS: EGFR Non-African American 93.7 (>60)
[2017-08-22] MEDS: Calcitriol CAP* 0.25 MCG PO SCH (17:30)
[2017-08-22] MEDS: Calcium Carbonate LIQ* 1,250 MG/5 ML UDC PO SCH ×2 (17:31→20:42)
[2017-08-22] MEDS: Warfarin TAB(*) 4 MG PO SCH (17:43)
[2017-08-22] MEDS: Warfarin TAB(*) 2.5 MG PO SCH (17:43)
[2017-08-22] MEDS ORDERED: Magnesium Sulfate IV* 3 GM in NS 0.9% 100 ML* 100 ML IVPB ONE (20:00)
--- NOTE | 2017-08-23 00:25 | CONS ---
CC: Nimo Person PA-C; Dr. Ender Brewer; Dr. Brinda Green; Dr. Diane Lux * CONSULTATION REPORT: DATE OF CONSULT: 08/22/17 PRIMARY CARE PROVIDER: Nimo Person PA-C. CONSULTING SATELLITE DISH REPAIRER: Dr. Ender Brewer. CONSULTING PROVIDER: Dr. Brinda Green. MY ATTENDING WHILE IN THE HOSPITAL: Dr. Diane Lux. REASON FOR CONSULTATION: Tachycardia, medical co-management of comorbid medical conditions. HISTORY OF PRESENT ILLNESS: Ms. Simth is a 62-year-old female with past medical history significant for persistent atrial fibrillation, hyperthyroidism due to Graves' disease, hypertension, was chronically anticoagulated on warfarin and rate controlled on metoprolol, who was admitted to the hospital for a thyroidectomy with Dr. Brinda Green on 08/19/17, and was discharged on . The patient had a course complicated by hypocalcemia and at that time, she was given IV calcium and had an appropriate rise in her calcium level. The patient was discharged to home and was instructed to follow up as an outpatient ; however, the patient left overnight from 08/21 and 08/22, woke up, felt very weak in her legs and had significant cramping in both of her arms and her legs with tingling in her hands. The patient had no other symptoms including palpitations, chest pain, shortness of breath. The patient returned to the hospital and was admitted for intravenous placement of her calcium, which was found to be 6.5. The patient when she was admitted was found to have a heart rate of 121. The patient had no at that time chest pain, shortness of breath, palpitations. The patient does not generally know if she goes in and out of atrial fibrillation and never had a palpitation sensation. The patient does not feel dizzy upon standing. The patient has no fever, chills, nausea, vomiting, abdominal pain, diarrhea, constipation. The patient states that the pain in her neck is controlled. The patient has no other complaints. The patient underwent a stress test in February 2017, which was unremarkable and was cleared for surgery by her oncology transplant network manager, who stated that she had no need for bridging her Coumadin post surgically due to low CHADS2-VASc score of 2. EKG showed that the patient was in atrial fibrillation with a rate of 98 and a QTc of 498. There is no recent previous EKG to compare too. The patient's blood pressure was stable. PAST MEDICAL HISTORY: Hyperthyroidism due to Graves' disease, persistent atrial fibrillation on chronic anticoagulation, GERD, tobacco abuse, hypertension. PAST SURGICAL HISTORY: Cervical diskectomy, laparoscopic cholecystectomy, tonsillectomy, tip-fib repair on her left knee, and total thyroidectomy. MEDICATIONS: Current medications which the patient states she took this morning include: 1. Metoprolol succinate. 2. Omeprazole 20 mg p.o. daily. 3. Warfarin 6 mg p.o. Tuesday, Tuesday, , Tuesday. Warfarin 6.5 mg Tuesday, Tuesday, Tuesday. 4. Levothyroxine 125 mcg p.o. daily. 5. Calcium carbonate 1000 mg p.o. q.8 hours. ALLERGIES: The patient has allergies to ANTIHISTAMINES with unknown reaction. FAMILY HISTORY: The patient's father of a heart attack and an unknown cancer. The patient's mother has a history of gallstones. No other known disease and is alive. The patient's sister had lupus and is . The patient's brother had psoriasis. SOCIAL HISTORY: The patient lives alone. 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 The patient smokes 1 to 2 cigarettes a day. The patient denies alcohol or illicit drug use. The patient would like to be a DNR. The patient's surrogate decision maker is her female friend, Emilee Agustin. REVIEW OF SYSTEMS: A 14-point review of systems was reviewed, it is negative except as above. PHYSICAL EXAM: General: The patient is a 62-year-old female, who appears her stated age and sitting comfortably in bed, in no acute distress. Vital Signs: At the time of evaluation, temperature 98.4, pulse rate 98, respiratory rate 20 , oxygen saturation 98% on room air, blood pressure 121/76. HEENT: Head is normocephalic, atraumatic. Sclerae anicteric. No conjunctival injection. Nasal mucosa moist. Oral mucosa moist. No oropharyngeal erythema, discharge or exudate. Neck: Supple. Large surgical incision covering previous goiter with surrounding edema. Lower portion of neck covered by Steri-Strips. No JVD. No carotid bruit auscultated. Cardiac: Irregularly irregular rhythm. Rate of 110. No clicks, murmurs, gallops or rubs. Pulses are 2+ in the bilateral dorsalis pedis, posterior tibialis and radial areas. No bilateral lower extremity edema or calf tenderness noted. Respiratory: Clear to auscultation bilaterally. No wheezes, rales or rhonchi. Good air exchange bilaterally. Abdomen: Soft, nontender, nondistended. Bowel sounds present and normoactive in all 4 quadrants. No hepatosplenomegaly. No abdominal bruits auscultated. No hepatojugular reflux. Skin: Surgical incision as above. No other rash. Genitourinary: No suprapubic or CVA tenderness. Neuro: Cranial nerves II through XII are intact. No focal deficits. Alert and oriented x3. Chvostek sign not reproducible. DIAGNOSTIC STUDIES/LAB DATA: Laboratory data: White blood cell count 9.7, hemoglobin 11.9, MCV 79, MCH 26, RDW 17, platelet count 225. INR 1.12, BUN 11, creatinine 0.64, calcium 6.5. Magnesium and potassium pending. ASSESSMENT AND PLAN/IMPRESSION: Ms. Smith is a 62-year-old female with past medical history significant for hyperthyroidism due to Graves' disease with a subtotal thyroidectomy on 08/19/[address] Brinda Green, who developed postoperative hypocalcemia presumably due to hypoparathyroidism, which was initially treated with intravenous calcium, but recurred upon discharge from the hospital, who was readmitted for IV calcium and was found to have an elevated heart rate due to atrial fibrillation. The patient will be rate controlled with oral medications, as she is hemodynamically stable and not at risk for coronary ischemia as evidenced by recent stress test. 1. Atrial fibrillation. The patient has persistent atrial fibrillation. Upon review of the patient's Cardiology notes, the patient has not been known to go in and out of atrial fibrillation. The patient is chronically rate controlled with metoprolol succinate 50 mg p.o. daily. This will be continued. The patient will be placed on telemetry and rate controlled with oral medications and IV medications if needed for a goal heart rate less than 100 at rest. The patient's EKG shows no signs of ischemia. The patient will not be bridged with Lovenox due to postoperative state and recommendations of outpatient oncology transplant network manager. 2. Postoperative state. Management per primary team. The patient's hemoglobin is slightly reduced though around her baseline, the patient does have microcytosis and elevated RDW. We will add on iron studies to assess for iron deficiency anemia. Bowel regimen and pain control per primary team. 3. Prolonged QT interval. The patient has significant hypocalcemia. The patient is currently receiving calcium. We will add on a potassium and magnesium, the patient's previous lab work, we will supplement these as needed to minimize risk of torsades and avoid QT prolonging agents. 4. Hypertension. The patient is currently normotensive. Continue metoprolol. 5. Gastroesophageal reflux disease. Continue omeprazole. 6. Hypocalcemia. Management per primary team. Agree with calcium carbonate, calcitriol, and calcium chloride intravenously. 7. DVT prophylaxis. Warfarin. 8. FEN. The patient will have a heart-healthy diet, regular unrestricted diet. The patient does not need fluids, at the moment appears euvolemic. 9. Disposition. The patient is admitted inpatient. Disposition per primary team. 10. Code status. The patient is a DNR through [facility]. This will need to be readdressed with the primary team. TIME SPENT: Approximately 60 minutes were spent on this consultation, 30 of which was spent [id number] with the patient obtaining history and physical and discussing the treatment plan. This plan was discussed with my attending, Dr. Diane Lux, and she is in agreement. KAREY HERCULES [id number]/CPS #: [id number] MTDD
[2017-08-23] MEDS: Calcium Carbonate LIQ* 1,250 MG/5 ML UDC PO SCH ×6 (01:24→19:56)
[2017-08-23] MEDS: HYDROcodone/ACET. 7.5/325 LIQ* 15 ML UDC PO PRN ×2 (01:31→21:56)
[2017-08-23] MEDS: Omeprazole CAP* 20 MG PO SCH (05:19)
[2017-08-23] MEDS: Levothyroxine TAB* 125 MCG TAB PO SCH (05:19)
[2017-08-23 07:02] LABS: ABS Basophils 0 10^3/ul (0-0.2); ABS Eosinophils 0.4 10^3/ul (0-0.6); ABS Lymphocytes 2.6 10^3/ul (1.0-4.8); ABS Monocytes 0.5 10^3/ul (0-0.8); ABS Neutrophils 3.8 10^3/ul (1.5-7.7); ABS Nucleated RBC 0 10^3/ul; Eosinophil % 4.9 % (0-6); Hematocrit 35 % (35-47); Lymphocyte % 35.7 % (25-47); Mean Corpuscular HGB Conc 34 g/dl (31-36); Mean Corpuscular Hemoglobin 27 pg (27-31); Mean Corpuscular Volume 78 fL (80-97); Mean Platelet Volume 7.9 um3 (7.4-10.4); Nucleated Red Blood Cells % 0.1; Platelet Count 218 10^3/ul (150-450); Red Blood Count 4.51 10^6/ul (4.00-5.40); Red Cell Distribution Width 17 % (10.5-15); White Blood Count 7.3 10^3/ul (3.5-10.8)
[2017-08-23] MEDS: Calcitriol CAP* 0.25 MCG PO SCH (08:33)
[2017-08-23] MEDS ORDERED: Calcium CHLORIDE 10% SYRINGE* 1 GM in D5W 100 ML BAG* 100 ML IV ONE ×2 (08:37→15:00)
[2017-08-23] MEDS ORDERED: Ondansetron INJ* 2 MG/ML VIAL IV PRN (08:37)
[2017-08-23] MEDS ORDERED: Ondansetron INJ* 2 MG/ML VIAL ONE (08:49)
[2017-08-23] MEDS ORDERED: Metoprolol Succinate XL TAB* 50 MG PO ONE (09:00)
[2017-08-23] MEDS ORDERED: Metoprolol Succinate XL TAB* 50 MG PO SCH ×2 (09:00)
[2017-08-23] MEDS ORDERED: Acetaminophen ADULT LIQ* 650 MG/20.3 ML UDC PO PRN (09:03)
--- NOTE | 2017-08-23 09:11 | SURGPN ---
Subjective - Introduction -: Patient was seen and examined at bedside. Reports feeling a little nauseated, getting Zofran at this time. Stil with very mild fingers numbness and tingling. Denies muscle twitches, difficulty breathing, dysphagia, fever or chills. Also notes some headaches, did not sleep well last night. - Medications -: Active Medications Generic Name Dose Route Start Last Admin Trade Name Freq PRN Reason Stop Dose Admin Acetaminophen 650 mg 08/23/17 09:03 Tylenol Adult Liq* PO Q6H PRN HEADACHE/PAIN Hydrocodone Bitart/Acetaminophen 5 ml 08/22/17 14:21 08/23/17 01:31 Nortab 7.5/325 Liq* PO 5 ml Q4H PRN Administration PAIN Calcitriol 0.25 mcg 08/22/17 17:00 08/23/17 08:33 Rocaltrol Cap* PO 0.25 mcg DAILY JAMES Administration Calcium Carbonate 1,250 mg 08/22/17 17:00 08/23/17 08:33 Calcium Carbonate Liq* PO 1,250 mg Q4H JAMES Administration Calcium Chloride 1 gm/ 110 mls @ 55 mls/hr 08/23/17 08:37 Dextrose IV 08/23/17 10:36 ONCE ONE Levothyroxine Sodium 125 mcg 08/23/17 06:00 08/23/17 05:19 Synthroid Tab* PO 125 mcg DAILY@0600 JAMES Administration Metoprolol Succinate 75 mg 08/23/17 09:00 08/23/17 08:34 Toprol Xl Tab* PO 75 mg DAILY JAMES Administration Omeprazole 20 mg 08/23/17 06:00 08/23/17 05:19 Prilosec Cap* PO 20 mg 0600 JAMES Administration Ondansetron HCl 4 mg 08/23/17 08:37 08/23/17 08:53 Zofran Inj* IV 4 mg Q6H PRN Administration NAUSEA Warfarin Sodium 6 mg 08/23/17 17:00 Coumadin Tab(*) PO SuTuThSa@1700 [facility] Protocol Warfarin Sodium 2.5 mg 08/22/17 17:00 08/22/17 17:43 Coumadin Tab(*) PO Not Given MoWeFr@1700 [facility] Warfarin Sodium 4 mg 08/22/17 17:00 08/22/17 17:43 Coumadin Tab(*) PO Not Given MoWeFr@1700 [facility] Objective - Objective -: Awake and alert, sitting on her bed, finished eating breakfast. Appears tired, but in NAD. - Intake and Output -: Intake & Output 08/21/17 08/22/17 08/23/17 08/24/17 06:59 06:59 06:59 06:59 Intake Total 104 Output Total 1100 Balance -996 Weight 180 lb Intake: IV Fluids 104 D5 w/CalciumChloride 104 Output: Urine 1100 Other: Estimated Void Medium # Voids 1 Surgical Physical Exam - Comments -: VSS, afebrile Neck supple, trachea midline, incision C/D/I. No swelling or ecchymosis. Lungs CTA bilat. Heart RRR, no murmurs Abdomen soft, NT/ND. Labs noted, Ca 6.8 this AM Assessment and Plan - Assessment -: A 62 y/o female s/p subtotal thyroidectomy, readmitted for hypocalcemia, being replaced with IV runs and PO supplement. - Plan Additional Comments: - Continue CaCl runs - Continue Ca carbonate PO supplement - Check Ca q6h - Tylenol for headaches
--- NOTE | 2017-08-23 11:25 | PN ---
Progress Note - Progress Note Date of Service: 08/23/17 Note: Surgery Ms. Smith feels "a wee bit" of numbness in her fingers, but otherwise denies complaints. Vital Signs 08/22/17 08/22/17 08/22/17 12:43 12:46 13:11 Temperature 98.4 F 98.4 F Pulse Rate 123 121 Respiratory 20 20 16 Rate Blood Pressure 121/76 121/76 (mmHg) O2 Sat by Pulse 98 98 Oximetry 08/22/17 08/22/17 08/22/17 14:50 16:22 17:41 Temperature 98.3 F Pulse Rate 97 Respiratory 16 20 16 Rate Blood Pressure 102/73 (mmHg) O2 Sat by Pulse 98 Oximetry 08/22/17 08/22/17 08/22/17 19:26 20:16 23:26 Temperature 98.6 F 97.9 F Pulse Rate 109 82 Respiratory 20 20 18 Rate Blood Pressure 110/70 122/76 (mmHg) O2 Sat by Pulse 98 98 Oximetry 08/23/17 08/23/17 08/23/17 01:31 03:30 03:51 Temperature 98.3 F Pulse Rate 104 Respiratory 16 16 16 Rate Blood Pressure 122/80 (mmHg) O2 Sat by Pulse 95 Oximetry 08/23/17 07:19 Temperature 99.0 F Pulse Rate 93 Respiratory 16 Rate Blood Pressure 143/79 (mmHg) O2 Sat by Pulse 97 Oximetry Incision: clean and dry Neg Chvostek's sign Laboratory Results - last 24 hr 08/22/17 08/22/17 08/22/17 14:09 14:09 16:28 WBC 9.7 RBC 4.52 Hgb 11.9 L Hct 36 MCV 79 L MCH 26 L MCHC 33 RDW 17 H Plt Count 225 MPV 8.0 Neut % (Auto) 65.4 Lymph % (Auto) 25.9 [place] % (Auto) 6.1 Eos % (Auto) 2.1 Baso % (Auto) 0.5 Absolute Neuts (auto) 6.3 Absolute Lymphs (auto) 2.5 Absolute Monos (auto) 0.6 Absolute Eos (auto) 0.2 Absolute Basos (auto) 0 Absolute Nucleated RBC 0 Nucleated RBC % 0.1 INR (Anticoag Therapy) Potassium BUN Creatinine Est GFR ( Amer) Est GFR (Non-Af Amer) Calcium 6.5 L Magnesium Iron 24 L TIBC 258 % Saturation 9 L Unsat Iron Binding 234 Transferrin 184 L Ferritin 195.2 08/22/17 08/22/17 08/22/17 16:28 16:28 19:17 WBC RBC Hgb Hct MCV MCH MCHC RDW Plt Count MPV Neut % (Auto) Lymph % (Auto) [place] % (Auto) Eos % (Auto) Baso % (Auto) Absolute Neuts (auto) Absolute Lymphs (auto) Absolute Monos (auto) Absolute Eos (auto) Absolute Basos (auto) Absolute Nucleated RBC Nucleated RBC % INR (Anticoag Therapy) 1.12 H Potassium 3.8 BUN 11 Creatinine 0.64 Est GFR ( Amer) 113.4 Est GFR (Non-Af Amer) 93.7 Calcium 7.4 L Magnesium 1.6 L Iron TIBC % Saturation Unsat Iron Binding Transferrin Ferritin 08/23/17 08/23/17 08/23/17 01:27 06:42 06:42 WBC 7.3 RBC 4.51 Hgb 12.0 Hct 35 MCV 78 L MCH 27 MCHC 34 RDW 17 H Plt Count 218 MPV 7.9 Neut % (Auto) 52.5 Lymph % (Auto) 35.7 [place] % (Auto) 6.4 Eos % (Auto) 4.9 Baso % (Auto) 0.5 Absolute Neuts (auto) 3.8 Absolute Lymphs (auto) 2.6 Absolute Monos (auto) 0.5 Absolute Eos (auto) 0.4 Absolute Basos (auto) 0 Absolute Nucleated RBC 0 Nucleated RBC % 0.1 INR (Anticoag Therapy) Potassium BUN 10 Creatinine 0.60 Est GFR ( Amer) 122.2 Est GFR (Non-Af Amer) 101.0 Calcium 7.0 L 6.8 L Magnesium 2.0 Iron TIBC % Saturation Unsat Iron Binding Transferrin Ferritin A/P: Persistent hypocalcemia. Will need close monitoring till she stabilizes. CLFoster
[2017-08-23] MEDS ORDERED: [UNRECOGNIZED DRUG - OTHER] INJ ONE ×2 (13:11→20:00)
--- NOTE | 2017-08-23 15:17 | PN ---
Subjective Date of Service: 08/23/17 Interval History: Patient continues to have slight numbness sin her hand and cramping in her legs improved from when it was worst at home. Denies CP, SOB, N/V, abdominal pain, F/ C, Abdominal pain, diarrhea, or other pain. Patient's IV infiltrated around 1200 and Hyaluronidase ordered. No current pain. Family History: Unchanged from Admission Social History: Unchanged from Admission Past Medical History: Unchanged from Admission Objective Active Medications: Acetaminophen (Tylenol Adult Liq*) 650 mg PO Q6H PRN PRN Reason: HEADACHE/PAIN Last Admin: 08/23/17 10:24 Dose: 650 mg Hydrocodone Bitart/Acetaminophen (Nortab 7.5/325 Liq*) 5 ml PO Q4H PRN PRN Reason: PAIN Last Admin: 08/23/17 01:31 Dose: 5 ml Calcitriol (Rocaltrol Cap*) 0.25 mcg PO DAILY [facility] Last Admin: 08/23/17 08:33 Dose: 0.25 mcg Calcium Carbonate (Calcium Carbonate Liq*) 1,250 mg PO Q4H [facility] Last Admin: 08/23/17 12:58 Dose: 1,250 mg Calcium Chloride 1 gm/ (Dextrose) 110 mls @ 55 mls/hr IV ONCE ONE Stop: 08/23/17 16:59 Levothyroxine Sodium (Synthroid Tab*) 125 mcg PO DAILY@0600 [facility] Last Admin: 08/23/17 05:19 Dose: 125 mcg Metoprolol Succinate (Toprol Xl Tab*) 75 mg PO DAILY [facility] Last Admin: 08/23/17 08:34 Dose: 75 mg Omeprazole (Prilosec Cap*) 20 mg PO 0600 [facility] Last Admin: 08/23/17 05:19 Dose: 20 mg Ondansetron HCl (Zofran Inj*) 4 mg IV Q6H PRN PRN Reason: NAUSEA Last Admin: 08/23/17 08:53 Dose: 4 mg Warfarin Sodium (Coumadin Tab(*)) 6 mg PO SuTuThSa@1700 [facility]; Protocol Warfarin Sodium (Coumadin Tab(*)) 2.5 mg PO MoWeFr@1700 [facility] Last Admin: 08/22/17 17:43 Dose: Not Given Warfarin Sodium (Coumadin Tab(*)) 4 mg PO MoWeFr@1700 [facility] Last Admin: 08/22/17 17:43 Dose: Not Given Vital Signs - 8 hr 08/23/17 08/23/17 07:19 11:20 Temperature 99.0 F 98.0 F Pulse Rate 93 76 Respiratory 16 16 Rate Blood Pressure 143/79 125/74 (mmHg) O2 Sat by Pulse 97 96 Oximetry Oxygen Devices in Use Now: None Appearance: Patient is a 62yo female who appears stated age, has large surgical incision on neck, and is sitting in the bed in NAD. Eyes: No Scleral Icterus, PERRLA Ears/Nose/Mouth/Throat: NL Teeth, Lips, Gums, Clear Oropharnyx, Mucous Membranes Moist Neck: NL Appearance and Movements; NL JVP, Trachea Midline Respiratory: Symmetrical Chest Expansion and Respiratory Effort, Clear to Auscultation Cardiovascular: NL Sounds; No Murmurs; No JVD, No Edema, - - Irregular rhythm. Rate 80 Abdominal: NL Sounds; No Tenderness; No Distention, No Hepatosplenomegaly Lymphatic: No Cervical Adenopathy Extremities: No Edema, No Clubbing, Cyanosis Skin: No Nodules or Sclerosis, - - Surgical insicion as above. Neurological: Alert and Oriented x 3, NL Sensation, NL Muscle Strength and Tone , - - CN II-XII intact. Normal Chvosteks sign. Result Diagrams: 08/23/17 06:42 08/23/17 06:42 Assess/Plan/Problems-Billing Assessment: Patient is a 62yo female with a PMH for graves disease, Afib, who is S/P subtotal thyroidectomy which was complicated by hypocalcemia which is persistent and is being replaced with IV and PO calcium. - Patient Problems (1) Hypocalcemia Current Visit: Yes Status: Acute Code(s): E83.51 - HYPOCALCEMIA SNOMED Code(s): 2431880 Comment: Managment per primary team. Persistent despite oral and IV replacement. Continue to monitor and replace. Magnesium replaced to help absorption. Mildly symptomatic. QTc prolonged. (2) Postoperative state Current Visit: Yes Status: Acute Code(s): Z98.890 - OTHER SPECIFIED POSTPROCEDURAL STATES SNOMED Code(s): 83031845 Comment: S/P Thyroidectomy. No other surgical complications. Management per primary team. Continue synthroid for post-surgical hypothyroidism. (3) Atrial fibrillation Current Visit: Yes Status: Acute Code(s): I48.91 - UNSPECIFIED ATRIAL FIBRILLATION SNOMED Code(s): 24961620 Comment: Persistent Afib. Rates to 120s on admission, metoprolol increased. Rate now well controlled. Follow with cardiology outpatient. Continue warfarin and monitor INR. (4) QT prolongation Current Visit: Yes Status: Acute Code(s): R94.31 - ABNORMAL ELECTROCARDIOGRAM [ECG] [EKG] SNOMED Code(s): 879543862 Comment: QT unchanged this morning. Likely due to hypocalcemia and hypomagnesemia. Replace magnesium and Calcium. Metoprolol with suppress ectopic beats. (5) DVT prophylaxis Current Visit: Yes Status: Acute Code(s): HUG7615 - SNOMED Code(s): 717077820 Comment: Heparin SubQ. (6) DNR (do not resuscitate) Current Visit: Yes Status: Acute Status and Disposition: Inpatient for IV calcium and Monitoring. Disposition per primary team.
--- NOTE | 2017-08-23 16:42 | PN ---
Progress Note - Progress Note Date of Service: 08/23/17 SOAP: Subjective: Patient feels much better than she did this morning. She admits to cramping in her legs which she normally has at baseline and she denies it being any worse than usual. Additionally she is complaining of swelling and discomfort secondary to IV site infiltration that she is using an ice pack for. Denies headache, fevers, chills, muscle spasms, or N/V. She is eating and voiding well. Objective: Vital Signs - 8 hr 08/23/17 08/23/17 11:20 15:45 Temperature 98.0 F 98.7 F Pulse Rate 76 78 Respiratory 16 18 Rate Blood Pressure 125/74 121/71 (mmHg) O2 Sat by Pulse 96 96 Oximetry Intake & Output 08/23/17 08/23/17 08/23/17 06:59 14:59 22:59 Intake Total 815 Output Total 900 300 Balance -900 515 Intake: IV Fluids 215 D5 w/CalciumChloride 100 Magnesium, Sulfate 115 Oral 600 Output: Urine 900 300 Calcium has increased from 6.8 at 6:42am to 7.6 at 1:19pm. Heart: regular rate, irregular rhythm. no rubs, gallops or murmurs appreciated. Lungs: clear to auscultation bilaterally Skin: patient has a 5cm by 3cm area of swelling on her right forearm where her IV site was located. No erythema was noted. Tenderness elicited upon palpation. Assessment: This patient has improved since this morning and her calcium levels are increasing. Plan: -establish new IV site -continue CaCl runs -monitor Ca q 6h -tylenol PRN for headache/pain related to site infiltration -continue to use ice packs to decrease swelling on arm
[2017-08-23 17:31] LABS: INR 1.13 (0.77-1.02)
[2017-08-23] MEDS: Warfarin TAB(*) 6 MG PO SCH (18:52)
[2017-08-24] MEDS: Calcium Carbonate LIQ* 1,250 MG/5 ML UDC PO SCH ×6 (00:17→20:20)
[2017-08-24] MEDS: HYDROcodone/ACET. 7.5/325 LIQ* 15 ML UDC PO PRN ×2 (00:55→05:13)
[2017-08-24] MEDS: Levothyroxine TAB* 125 MCG TAB PO SCH (05:12)
[2017-08-24] MEDS: Omeprazole CAP* 20 MG PO SCH (05:12)
[2017-08-24 06:47] LABS: ABS Basophils 0 10^3/ul (0-0.2); ABS Eosinophils 0.5 10^3/ul (0-0.6); ABS Lymphocytes 2.1 10^3/ul (1.0-4.8); ABS Monocytes 0.6 10^3/ul (0-0.8); ABS Neutrophils 4.9 10^3/ul (1.5-7.7); ABS Nucleated RBC 0 10^3/ul; Eosinophil % 5.9 % (0-6); Hematocrit 38 % (35-47); Lymphocyte % 25.4 % (25-47); Mean Corpuscular HGB Conc 34 g/dl (31-36); Mean Corpuscular Hemoglobin 27 pg (27-31); Mean Corpuscular Volume 79 fL (80-97); Mean Platelet Volume 7.9 um3 (7.4-10.4); Nucleated Red Blood Cells % 0.1; Platelet Count 239 10^3/ul (150-450); Red Blood Count 4.89 10^6/ul (4.00-5.40); Red Cell Distribution Width 17 % (10.5-15); White Blood Count 8.1 10^3/ul (3.5-10.8)
[2017-08-24] MEDS: Metoprolol Succinate XL TAB* 50 MG PO SCH ×2 (08:57→20:20)
[2017-08-24] MEDS: Calcitriol CAP* 0.25 MCG PO SCH (08:57)
[2017-08-24] MEDS: Magnesium Oxide TAB* 400 MG PO SCH (08:57)
[2017-08-24] MEDS: Magnesium Sulfate 2 GM IV* 2 GM/50 ML BAG IVPB ONE ×2 (10:00→10:09)
[2017-08-24] MEDS ORDERED: Magnesium Sulfate IV 2 GM in NS 100 ML (Pharmacy Admixed) IV ONE (10:00)
[2017-08-24] MEDS ORDERED: Calcium CHLORIDE 10% SYRINGE* 1 GM in D5W 100 ML BAG* 100 ML IV ONE (10:09)
--- NOTE | 2017-08-24 13:37 | PN ---
Subjective Date of Service: 08/24/17 Interval History: Patient had 2 iv lines infiltrate with Calcium chloride infiltration yesterday. Patient is having pain from these sites. No subcutaneous nodules. Has continued spasms and paresthesias. Occasional dizziness with head movement. Denies CP, SOB , orthostatic dizziness, F/C, N/V, abdominal pain, diarrhea, or other pain. Family History: Unchanged from Admission Social History: Unchanged from Admission Past Medical History: Unchanged from Admission Objective Active Medications: Acetaminophen (Tylenol Adult Liq*) 650 mg PO Q6H PRN PRN Reason: HEADACHE/PAIN Last Admin: 08/23/17 10:24 Dose: 650 mg Hydrocodone Bitart/Acetaminophen (Nortab 7.5/325 Liq*) 5 ml PO Q4H PRN PRN Reason: PAIN Last Admin: 08/24/17 05:13 Dose: 5 ml Calcitriol (Rocaltrol Cap*) 0.25 mcg PO DAILY [facility] Last Admin: 08/24/17 08:57 Dose: 0.25 mcg Calcium Carbonate (Calcium Carbonate Liq*) 1,250 mg PO Q4H [facility] Last Admin: 08/24/17 13:03 Dose: 1,250 mg Calcium Chloride 1 gm/ (Dextrose) 110 mls @ 55 mls/hr IV Q6H PRN PRN Reason: IF CALCIUM LAB VALUE < 8 Levothyroxine Sodium (Synthroid Tab*) 125 mcg PO DAILY@0600 [facility] Last Admin: 08/24/17 05:12 Dose: 125 mcg Magnesium Oxide (Magox 400 Tab*) 400 mg PO DAILY [facility] Last Admin: 08/24/17 08:57 Dose: 400 mg Metoprolol Succinate (Toprol Xl Tab*) 50 mg PO BID [facility] Last Admin: 08/24/17 08:57 Dose: 50 mg Omeprazole (Prilosec Cap*) 20 mg PO 0600 [facility] Last Admin: 08/24/17 05:12 Dose: 20 mg Ondansetron HCl (Zofran Inj*) 4 mg IV Q6H PRN PRN Reason: NAUSEA Last Admin: 08/23/17 08:53 Dose: 4 mg Warfarin Sodium (Coumadin Tab(*)) 6 mg PO SuTuThSa@1700 [facility]; Protocol Last Admin: 08/23/17 18:52 Dose: 6 mg Warfarin Sodium (Coumadin Tab(*)) 2.5 mg PO MoWeFr@1700 [facility] Last Admin: 08/22/17 17:43 Dose: Not Given Warfarin Sodium (Coumadin Tab(*)) 4 mg PO MoWeFr@1700 [facility] Last Admin: 08/22/17 17:43 Dose: Not Given Vital Signs - 8 hr 08/24/17 08/24/17 08/24/17 07:21 08:00 09:18 Temperature 97.7 F Pulse Rate 90 Respiratory 16 18 18 Rate Blood Pressure 128/73 (mmHg) O2 Sat by Pulse 99 Oximetry 08/24/17 11:07 Temperature 97.9 F Pulse Rate 96 Respiratory 16 Rate Blood Pressure 121/90 (mmHg) O2 Sat by Pulse 98 Oximetry Oxygen Devices in Use Now: None Appearance: Patient is a 62yo female who appears stated age and is sitting in the bed in NAD. Eyes: No Scleral Icterus, PERRLA Ears/Nose/Mouth/Throat: NL Teeth, Lips, Gums, Clear Oropharnyx, Mucous Membranes Moist Neck: NL Appearance and Movements; NL JVP, Trachea Midline, - - Surgical incision covered with steri-strips. Respiratory: Symmetrical Chest Expansion and Respiratory Effort, Clear to Auscultation Cardiovascular: NL Sounds; No Murmurs; No JVD, RRR, No Edema Abdominal: NL Sounds; No Tenderness; No Distention, No Hepatosplenomegaly Lymphatic: No Cervical Adenopathy Extremities: No Edema, No Clubbing, Cyanosis Skin: No Nodules or Sclerosis Neurological: Alert and Oriented x 3, NL Sensation, NL Muscle Strength and Tone , - - CN II-XII intact. Chvostek sign postive bilaterally. Result Diagrams: 08/24/17 06:18 08/23/17 06:42 Assess/Plan/Problems-Billing Assessment: Patient is a 62yo female with a PMH for graves disease, Afib, who is S/P subtotal thyroidectomy which was complicated by hypocalcemia which is persistent and is being replaced with IV and PO calcium. - Patient Problems (1) Hypocalcemia Current Visit: Yes Status: Acute Code(s): E83.51 - HYPOCALCEMIA SNOMED Code(s): 2502221 Comment: Managment per primary team. Persistent despite oral and IV replacement. Continue to monitor and replace. Magnesium replaced to help absorption. Mildly symptomatic. QTc prolonged but improving. Infiltration of 2 IVs without calcinosis cutis. Treated with Hyaluronidase. PICC line to be placed for Calcium administration. (2) Postoperative state Current Visit: Yes Status: Acute Code(s): Z98.890 - OTHER SPECIFIED POSTPROCEDURAL STATES SNOMED Code(s): 24416673 Comment: S/P Thyroidectomy. No other surgical complications. Management per primary team. Continue synthroid for post-surgical hypothyroidism. (3) Atrial fibrillation Current Visit: Yes Status: Acute Code(s): I48.91 - UNSPECIFIED ATRIAL FIBRILLATION SNOMED Code(s): 44929650 Comment: Persistent Afib. Rates to 120s on admission, metoprolol increased. Rate now well controlled. Follow with cardiology outpatient. Continue warfarin and monitor INR. Intermittent HR to 160s with activity. Metoprolol Succinate increased and changed to BID dosing. (4) QT prolongation Current Visit: Yes Status: Acute Code(s): R94.31 - ABNORMAL ELECTROCARDIOGRAM [ECG] [EKG] SNOMED Code(s): 504772405 Comment: Improved this morning. Likely due to hypocalcemia and hypomagnesemia. Replace magnesium and Calcium. Metoprolol will suppress ectopic beats. (5) DVT prophylaxis Current Visit: Yes Status: Acute Code(s): OPL1132 - SNOMED Code(s): 726887802 Comment: Heparin SubQ. (6) DNR (do not resuscitate) Current Visit: Yes Status: Acute Status and Disposition: Inpatient for IV calcium and Monitoring. Disposition per primary team.
--- NOTE | 2017-08-24 15:37 | RAD ---
INDICATION: PICC line placement COMPARISON: November 25, 2010 TECHNIQUE: An AP portable view obtained at 1502 hours is submitted. FINDINGS: Bones/Soft Tissues: There are no acute bony findings. There is a right-sided PICC catheter terminating in the superior vena cava. Cardiomediastinal: The cardiomediastinal silhouette is normal. Lungs: There are no infiltrates. Pleura: There are no pleural effusions. Other: None IMPRESSION: PICC catheter in expected position. Lungs clear.
[2017-08-24] MEDS: Calcium CHLORIDE 10% SYRINGE* 1 GM in D5W 100 ML BAG* 100 ML IV PRN ×2 (15:42→21:34)
[2017-08-24] MEDS: Warfarin TAB(*) 4 MG PO SCH (16:59)
[2017-08-24] MEDS: Warfarin TAB(*) 2.5 MG PO SCH (16:59)
[2017-08-25] MEDS: Calcium Carbonate LIQ* 1,250 MG/5 ML UDC PO SCH ×6 (00:07→20:32)
[2017-08-25] MEDS: Calcium CHLORIDE 10% SYRINGE* 1 GM in D5W 100 ML BAG* 100 ML IV PRN ×2 (03:38→15:56)
[2017-08-25] MEDS: Omeprazole CAP* 20 MG PO SCH (06:52)
[2017-08-25] MEDS: Levothyroxine TAB* 125 MCG TAB PO SCH (06:52)
[2017-08-25 07:17] LABS: ABS Basophils 0 10^3/ul (0-0.2); ABS Eosinophils 0.5 10^3/ul (0-0.6); ABS Lymphocytes 2.7 10^3/ul (1.0-4.8); ABS Monocytes 0.5 10^3/ul (0-0.8); ABS Neutrophils 4.7 10^3/ul (1.5-7.7); ABS Nucleated RBC 0 10^3/ul; Eosinophil % 5.4 % (0-6); Hematocrit 38 % (35-47); Hemoglobin 12.9 g/dl (12.0-16.0); Lymphocyte % 31.8 % (25-47); Mean Corpuscular HGB Conc 34 g/dl (31-36); Mean Corpuscular Hemoglobin 26 pg (27-31); Mean Corpuscular Volume 79 fL (80-97); Mean Platelet Volume 8.1 um3 (7.4-10.4); Nucleated Red Blood Cells % 0.1; Platelet Count 259 10^3/ul (150-450); Red Blood Count 4.87 10^6/ul (4.00-5.40); Red Cell Distribution Width 16 % (10.5-15); White Blood Count 8.3 10^3/ul (3.5-10.8)
[2017-08-25 07:31] LABS: INR 1.24 (0.77-1.02)
[2017-08-25 07:34] LABS: EGFR Non-African American 102.9 (>60)
--- NOTE | 2017-08-25 08:19 | PN ---
Subjective Date of Service: 08/25/17 Interval History: Patient seen and examined at bedside. Denies fever, chills, shortness of breath , chest discomfort, N/V/D, numbness or tingling. Pt states that the pain in her right arm at an IV infiltration site is improving. Pt states that her neck pain is tolerable. Tele: A fib, rate 70-80's Family History: Unchanged from Admission Social History: Unchanged from Admission Past Medical History: Unchanged from Admission Objective Active Medications: Acetaminophen (Tylenol Adult Liq*) 650 mg PO Q6H PRN Reason: HEADACHE/PAIN Hydrocodone Bitart/Acetaminophen (Nortab 7.5/325 Liq*) 5 ml PO Q4H PRN Reason: PAIN Calcitriol (Rocaltrol Cap*) 0.25 mcg PO DAILY [facility] Calcium Carbonate (Calcium Carbonate Liq*) 1,250 mg PO Q4H [facility] Heparin Sodium (Porcine) (Heparin Flush Picc/Ml/Cvc(*)) 1 - 3 ml FLUSH 0600, 1800 [facility]; Protocol Calcium Chloride 1 gm/ (Dextrose) 110 mls @ 55 mls/hr IV Q6H PRN Reason: IF CALCIUM LAB VALUE < 8 Levothyroxine Sodium (Synthroid Tab*) 125 mcg PO DAILY@0600 [facility] Magnesium Oxide (Magox 400 Tab*) 400 mg PO DAILY [facility] Metoprolol Succinate (Toprol Xl Tab*) 50 mg PO BID [facility] Omeprazole (Prilosec Cap*) 20 mg PO 0600 [facility] Ondansetron HCl (Zofran Inj*) 4 mg IV Q6H PRN Reason: NAUSEA Warfarin Sodium (Coumadin Tab(*)) 6 mg PO SuTuThSa@1700 [facility]; Protocol Warfarin Sodium (Coumadin Tab(*)) 2.5 mg PO MoWeFr@1700 [facility] Warfarin Sodium (Coumadin Tab(*)) 4 mg PO MoWeFr@1700 [facility] Vital Signs - 8 hr 08/25/17 08/25/17 03:40 07:34 Temperature 98.0 F 97.7 F Pulse Rate 86 89 Respiratory 19 16 Rate Blood Pressure 136/79 116/77 (mmHg) O2 Sat by Pulse 100 98 Oximetry Oxygen Devices in Use Now: None Appearance: NAD, sitting up in bed Ears/Nose/Mouth/Throat: Mucous Membranes Moist Neck: - - Mild edema to anterior neck at surgical site Respiratory: Symmetrical Chest Expansion and Respiratory Effort, Clear to Auscultation Cardiovascular: NL Sounds; No Murmurs; No JVD, - - Heart rate irregular Abdominal: NL Sounds; No Tenderness; No Distention Extremities: No Edema Skin: - - Incision to anterior neck with steri strips clean and dry. Neurological: Alert and Oriented x 3, NL Muscle Strength and Tone Lines/Tubes/Other Access: Clean, Dry and Intact Peripheral IV - site benign Nutrition: Taking PO's Result Diagrams: 08/25/17 06:50 08/25/17 06:50 Assess/Plan/Problems-Billing Assessment: Ms. Leone is a 62yo female with a PMH for graves disease, Afib, who is S/P subtotal thyroidectomy which was complicated by hypocalcemia which is persistent and is being replaced with IV and PO calcium. - Patient Problems (1) Hypocalcemia Code(s): E83.51 - HYPOCALCEMIA SNOMED Code(s): 4036724 Comment: - Improving, but persistent despite oral and IV replacement. Managment per primary team - QTc prolonged but improving - Infiltration of 2 IVs without calcinosis cutis. Treated with Hyaluronidase - Continue to monitor and replace. Magnesium replaced to help with absorption of calcium (2) Status post thyroidectomy Code(s): E89.0 - POSTPROCEDURAL HYPOTHYROIDISM SNOMED Code(s): 426526880 Comment: - POD #6, management per general surgery - No other surgical complications - Continue synthroid for post-surgical hypothyroidism (3) Atrial fibrillation Code(s): I48.91 - UNSPECIFIED ATRIAL FIBRILLATION SNOMED Code(s): 00095334 Comment: - Persistent Afib, rates up to 120s on admission and intermittent HR to 160s with activity - Rate well controlled - Continue warfarin and monitor INR, and Metoprolol Succinate (increased dose) - Follow with cardiology outpatient (4) QT prolongation Code(s): R94.31 - ABNORMAL ELECTROCARDIOGRAM [ECG] [EKG] SNOMED Code(s): 858902512 Comment: - Improving - Suspect secondary to hypocalcemia and hypomagnesemia - Metoprolol will suppress ectopic beats - Continue to replace magnesium and Calcium (5) Hypomagnesemia Code(s): E83.42 - HYPOMAGNESEMIA SNOMED Code(s): 629534535 Comment: - Will give replacement and recheck labs in the AM (6) Graves disease Code(s): E05.00 - THYROTOXICOSIS W DIFFUSE GOITER W/O THYROTOXIC CRISIS SNOMED Code(s): 977454032 Comment: - History, now s/p thyroidectomy (7) DVT prophylaxis Code(s): YDW7738 - SNOMED Code(s): 416788755 Comment: - Heparin SubQ (8) DNR (do not resuscitate) Status and Disposition: Inpatient for IV calcium and Monitoring. Disposition per primary team when medically stable.
--- NOTE | 2017-08-25 08:48 | PN ---
Progress Note - Progress Note Date of Service: 08/25/17 Note: Surgery Ms. Smith feels better. She got a PICC for the IV calcium and has had 2 doses since. Before that the IVs infiltrated. She denies numbness which she still had a little bit yesterday. Vital Signs 08/24/17 08/24/17 08/24/17 09:18 11:07 15:30 Temperature 97.9 F 97.9 F Pulse Rate 96 97 Respiratory 18 16 20 Rate Blood Pressure 121/90 124/78 (mmHg) O2 Sat by Pulse 98 100 Oximetry 08/24/17 08/24/17 08/24/17 19:30 20:23 23:39 Temperature 98.1 F 98.4 F Pulse Rate 101 80 Respiratory 20 18 16 Rate Blood Pressure 120/76 127/66 (mmHg) O2 Sat by Pulse 97 100 Oximetry 08/25/17 08/25/17 03:40 07:34 Temperature 98.0 F 97.7 F Pulse Rate 86 89 Respiratory 19 16 Rate Blood Pressure 136/79 116/77 (mmHg) O2 Sat by Pulse 100 98 Oximetry Incision is clean and dry; no signs infection; some swelling of the site; Neg. Chvostek sign Laboratory Results - last 24 hr 08/24/17 08/24/17 08/25/17 14:30 20:10 02:01 WBC RBC Hgb Hct MCV MCH MCHC RDW Plt Count MPV Neut % (Auto) Lymph % (Auto) [place] % (Auto) Eos % (Auto) Baso % (Auto) Absolute Neuts (auto) Absolute Lymphs (auto) Absolute Monos (auto) Absolute Eos (auto) Absolute Basos (auto) Absolute Nucleated RBC Nucleated RBC % INR (Anticoag Therapy) BUN Creatinine Est GFR ( Amer) Est GFR (Non-Af Amer) Calcium 6.4 L* 7.4 L 7.8 L Magnesium 08/25/17 08/25/17 08/25/17 06:50 06:50 06:50 WBC 8.3 RBC 4.87 Hgb 12.9 Hct 38 MCV 79 L MCH 26 L MCHC 34 RDW 16 H Plt Count 259 MPV 8.1 Neut % (Auto) 55.9 Lymph % (Auto) 31.8 [place] % (Auto) 6.4 Eos % (Auto) 5.4 Baso % (Auto) 0.5 Absolute Neuts (auto) 4.7 Absolute Lymphs (auto) 2.7 Absolute Monos (auto) 0.5 Absolute Eos (auto) 0.5 Absolute Basos (auto) 0 Absolute Nucleated RBC 0 Nucleated RBC % 0.1 INR (Anticoag Therapy) 1.24 H BUN 9 Creatinine 0.59 Est GFR ( Amer) 124.6 Est GFR (Non-Af Amer) 102.9 Calcium Magnesium 1.8 L POD#6 s/p subtotal thyroidectomy with hypocalcemia which should be transient, but which requires management. Appreciate assistance from hospitalists. Continue to monitor and replete calcium; would like to see that she is stable on oral supplements before discharge. Efren
--- NOTE | 2017-08-25 09:18 | PN ---
Subjective - Subjective Reason for Note: Consultation Note History: Consultation - per Dr. Brinda Green MD I referred this patient for surgical management of Graves' disease with hyperthyroidism. 08/19/2017 she underwent bilateral subtotal thyroidectomy She has had problems with severe hypocalcemia since: Laboratory Tests 08/19/17 08/20/17 08/20/17 14:25 05:30 08:08 Calcium 8.7 7.9 L 7.9 L 08/20/17 08/20/17 08/21/17 13:50 20:17 05:28 Calcium 7.8 L 7.8 L 7.2 L 08/21/17 08/22/17 08/22/17 11:53 14:09 19:17 Calcium 8.0 L 6.5 L 7.4 L 08/23/17 08/23/17 08/23/17 01:27 06:42 13:19 Calcium 7.0 L 6.8 L 7.6 L 08/23/17 08/24/17 08/24/17 19:05 00:50 06:18 Calcium 7.8 L 7.3 L 7.0 L 08/24/17 08/24/17 08/25/17 14:30 20:10 02:01 Calcium 6.4 L* 7.4 L 7.8 L 08/25/17 08:15 Calcium 8.3 L She was discharged 08/21/2017 and returned to the hospital having woken up with circumoral numbness and also numbness in both hands. She had positive Trousseau sign in the emergency room. She has been receiving calcium and calcitriol since hospitalization. She is currently take calcium carbonate solution 1,250 mg every 4 hours and calcitriol 0.25 mcg qdaily. She has also been receiving parenteral calcium gluconate. This morning she is feeling better and has no symptoms of her hypocalcemia. Active Problems: Active Problems Hypocalcemia (Acute) E83.51 ..... Managment per primary team. Persistent despite oral and IV replacement. Continue to monitor and replace. Magnesium replaced to help absorption. Mildly symptomatic. QTc prolonged but improving. Infiltration of 2 IVs without calcinosis cutis. Treated with Hyaluronidase. PICC line to be placed for Calcium administration. Hypoparathyroidism (Acute) E20.9 Postoperative state (Acute) Z98.890 S/P Thyroidectomy. No other surgical complications. Management per primary team. Continue synthroid for post-surgical hypothyroidism. Status post thyroidectomy (Acute) E89.0 Atrial fibrillation (Chronic) I48.91 Persistent Afib. Rates to 120s on admission, metoprolol increased. Rate now well controlled. Follow with cardiology outpatient. Continue warfarin and monitor INR. Intermittent HR to 160s with activity. Metoprolol Succinate increased and changed to BID dosing. DNR (do not resuscitate) (Chronic) DVT prophylaxis (Chronic) [id number] Heparin SubQ. Graves disease (Chronic) E05.00 QT prolongation (Chronic) R94.31 Improved this morning. Likely due to hypocalcemia and hypomagnesemia. Replace magnesium and Calcium. Metoprolol will suppress ectopic beats. Current Medications: Current Medications Acetaminophen (Tylenol Adult Liq*) 650 mg PO Q6H PRN PRN Reason: HEADACHE/PAIN Last Admin: 08/23/17 10:24 Dose: 650 mg Hydrocodone Bitart/Acetaminophen (Nortab 7.5/325 Liq*) 5 ml PO Q4H PRN PRN Reason: PAIN Last Admin: 08/24/17 05:13 Dose: 5 ml Calcitriol (Rocaltrol Cap*) 0.25 mcg PO DAILY [facility] Last Admin: 08/24/17 08:57 Dose: 0.25 mcg Calcium Carbonate (Calcium Carbonate Liq*) 1,250 mg PO Q4H [facility] Last Admin: 08/25/17 07:24 Dose: 1,250 mg Heparin Sodium (Porcine) (Heparin Flush Picc/Ml/Cvc(*)) 1 - 3 ml FLUSH 0600, 1800 [facility]; Protocol Last Admin: 08/25/17 06:45 Dose: 1 ml Calcium Chloride 1 gm/ (Dextrose) 110 mls @ 55 mls/hr IV Q6H PRN PRN Reason: IF CALCIUM LAB VALUE < 8 Last Admin: 08/25/17 03:38 Dose: 55 mls/hr Levothyroxine Sodium (Synthroid Tab*) 125 mcg PO DAILY@0600 [facility] Last Admin: 08/25/17 06:52 Dose: 125 mcg Magnesium Oxide (Magox 400 Tab*) 400 mg PO DAILY [facility] Last Admin: 08/24/17 08:57 Dose: 400 mg Metoprolol Succinate (Toprol Xl Tab*) 50 mg PO BID [facility] Last Admin: 08/24/17 20:20 Dose: 50 mg Omeprazole (Prilosec Cap*) 20 mg PO 0600 [facility] Last Admin: 08/25/17 06:52 Dose: 20 mg Ondansetron HCl (Zofran Inj*) 4 mg IV Q6H PRN PRN Reason: NAUSEA Last Admin: 08/23/17 08:53 Dose: 4 mg Warfarin Sodium (Coumadin Tab(*)) 6 mg PO SuTuThSa@1700 [facility]; Protocol Last Admin: 08/23/17 18:52 Dose: 6 mg Warfarin Sodium (Coumadin Tab(*)) 2.5 mg PO MoWeFr@1700 [facility] Last Admin: 08/24/17 16:59 Dose: 2.5 mg Warfarin Sodium (Coumadin Tab(*)) 4 mg PO MoWeFr@1700 [facility] Last Admin: 08/24/17 16:59 Dose: 4 mg Home Medications: Home Medications Medication Instructions Recorded Confirmed Type Metoprolol Succinate 50 mg PO QAM 08/16/17 08/19/17 History Omeprazole CAP* [Prilosec CAP* 20 20 mg PO QAM 08/16/17 08/19/17 History MG] Warfarin TAB(*) [Coumadin TAB(*)] 6 mg PO SEE INSTRUCTIONS 08/16/17 08/19/17 History Calcium Carbonate LIQ* [Calcium 1,000 mg PO Q8H #60 ml 08/20/17 Rx Carbonate Liq*] Allergies: Allergies Allergy/AdvReac Type Severity Reaction Status Date / Time Antihistamines - Alkylamine AdvReac Diarrhea Verified 08/24/17 07:20 Antihistamines - Ethanolamine AdvReac Diarrhea Verified 08/24/17 07:20 Antihistamines - AdvReac Diarrhea Verified 08/24/17 07:20 Ethylenediamine Antihistamines - Piperazine AdvReac Diarrhea Verified 08/24/17 07:20 Antihistamines - Piperidine AdvReac Diarrhea Verified 08/24/17 07:20 Objective - Vital Signs Vital Signs: Vital Signs 08/24/17 08/24/17 08/24/17 09:18 11:07 15:30 Temperature 97.9 F 97.9 F Pulse Rate 96 97 Respiratory 18 16 20 Rate Blood Pressure 121/90 124/78 (mmHg) O2 Sat by Pulse 98 100 Oximetry 08/24/17 08/24/17 08/24/17 19:30 20:23 23:39 Temperature 98.1 F 98.4 F Pulse Rate 101 80 Respiratory 20 18 16 Rate Blood Pressure 120/76 127/66 (mmHg) O2 Sat by Pulse 97 100 Oximetry 08/25/17 08/25/17 03:40 07:34 Temperature 98.0 F 97.7 F Pulse Rate 86 89 Respiratory 19 16 Rate Blood Pressure 136/79 116/77 (mmHg) O2 Sat by Pulse 100 98 Oximetry - Intake and Output Intake and Output: Intake & Output 08/22/17 08/23/17 08/24/17 08/25/17 11:59 11:59 11:59 11:59 Intake Total 419 1925 2515 Output Total 1100 1550 2850 Balance -681 375 -335 Weight 180 lb Intake: IV Fluids 219 100 125 D5 w/CalciumChloride 104 100 110 Magnesium, Sulfate 115 NS (0.9%) 15 IVPB 105 110 D5 w/CalciumChloride 110 Magnesium, Sulfate 105 Medicated IV 20 20 NS 20 20 Oral 200 1700 2260 Output: Urine 1100 1550 2850 Other: Estimated Void Medium # Bowel Movements 0 0 Estimated Stool Amount Large # Voids 1 ADLs: Meal Record Start: 08/22/17 12: 33 Freq: Status: Active Protocol: Created 08/22/17 12:33 System (Rec: 08/22/17 12:33 System [facility]-3) Document 08/23/17 10:59 [id number] (Rec: 08/23/17 11:01 [id number] SSU-C02) Document 08/23/17 13:50 [id number] (Rec: 08/23/17 13:55 [id number] SSU-C10) Document 08/23/17 20:05 [id number] (Rec: 08/23/17 20:05 [id number]) Document 08/24/17 09:27 [id number] (Rec: 08/24/17 09:28 [id number] SSU-C10) Document 08/24/17 13:36 [id number] (Rec: 08/24/17 13:36 [id number] SSU-C03) Document 08/24/17 13:54 [id number] (Rec: 08/24/17 13:56 [id number] SSU-C10) Document 08/24/17 19:02 [id number] (Rec: 08/24/17 19:02 [id number] SSU-C09) Intake and Output Start: 08/22/17 12: 33 Freq: DAILY@0600,1400,2200 Status: Active Protocol: Created 08/22/17 12:33 System (Rec: 08/22/17 12:33 System CRM-C13) Document 08/22/17 14:00 [id number] (Rec: 08/22/17 18:47 [id number] SSU-M13) Document 08/22/17 19:27 [id number] (Rec: 08/22/17 19:27 [id number] SSU-M13) Document 08/23/17 04:14 [id number] (Rec: 08/23/17 04:14 [id number] SSU-M13) Document 08/23/17 05:47 [id number] (Rec: 08/23/17 05:48 [id number] SSU-M13) Document 08/23/17 13:50 [id number] (Rec: 08/23/17 13:55 [id number] SSU-C10) Document 08/23/17 20:44 [id number] (Rec: 08/23/17 20:44 [id number]) Document 08/23/17 22:14 [id number] (Rec: 08/23/17 22:15 [id number]) Document 08/24/17 02:18 [id number] (Rec: 08/24/17 02:19 [id number]) Document 08/24/17 06:00 [id number] (Rec: 08/24/17 06:40 [id number] SSU-C02) Document 08/24/17 12:56 [id number] (Rec: 08/24/17 13:01 [id number] SSU-C10) Document 08/24/17 17:01 [id number] (Rec: 08/24/17 17:01 [id number] SSU-M14) Document 08/24/17 19:32 [id number] (Rec: 08/24/17 19:33 [id number] SSU-M14) Document 08/24/17 22:18 [id number] (Rec: 08/24/17 22:19 [id number] SSU-M14) Document 08/25/17 00:09 (Rec: 08/25/17 00:09 IX03) Document 08/25/17 01:26 (Rec: 08/25/17 01:26 IX03) Document 08/25/17 03:41 [id number] (Rec: 08/25/17 03:41 [id number] SSU-M13) Document 08/25/17 06:01 (Rec: 08/25/17 06:01 IX03) Document 08/25/17 08:24 [id number] (Rec: 08/25/17 08:25 [id number] SSU-C01) - Physical Exam General Physical Exam Comment: She has a scar from the thyroidectomy. She has a negative Chvostek's sign Results - Results Lab Results: Laboratory Results - last 24 hr 08/24/17 08/24/17 08/25/17 14:30 20:10 02:01 WBC RBC Hgb Hct MCV MCH MCHC RDW Plt Count MPV Neut % (Auto) Lymph % (Auto) [place] % (Auto) Eos % (Auto) Baso % (Auto) Absolute Neuts (auto) Absolute Lymphs (auto) Absolute Monos (auto) Absolute Eos (auto) Absolute Basos (auto) Absolute Nucleated RBC Nucleated RBC % INR (Anticoag Therapy) BUN Creatinine Est GFR ( Amer) Est GFR (Non-Af Amer) Calcium 6.4 L* 7.4 L 7.8 L Magnesium 08/25/17 08/25/17 08/25/17 06:50 06:50 06:50 WBC 8.3 RBC 4.87 Hgb 12.9 Hct 38 MCV 79 L MCH 26 L MCHC 34 RDW 16 H Plt Count 259 MPV 8.1 Neut % (Auto) 55.9 Lymph % (Auto) 31.8 [place] % (Auto) 6.4 Eos % (Auto) 5.4 Baso % (Auto) 0.5 Absolute Neuts (auto) 4.7 Absolute Lymphs (auto) 2.7 Absolute Monos (auto) 0.5 Absolute Eos (auto) 0.5 Absolute Basos (auto) 0 Absolute Nucleated RBC 0 Nucleated RBC % 0.1 INR (Anticoag Therapy) 1.24 H BUN 9 Creatinine 0.59 Est GFR ( Amer) 124.6 Est GFR (Non-Af Amer) 102.9 Calcium Magnesium 1.8 L Other Results/Reports: Patient Name: ERICA FLAHERTY Pathology Number: [id number] [facility].Rec. #: [id number] Collection Date: 08/19/17 Acct. Number#: [id number] Received Date: 08/19/17 : 1955 Location: [facility] Gender: F Status: SOUT Submitting Physician: Brinda Green MD Other Physician: FINAL DIAGNOSIS Thyroid, thyroidectomy: -- Multinodular follicular hyperplasia. -- No evidence of neoplasia. Electronically Signed by: Arminda Turk MD Reported on: 08/23/17 3401 PRE-OPERATIVE DIAGNOSIS Assessment - Problem List Assessment: Patient Problems Hypocalcemia (Acute) Hypoparathyroidism (Acute) Postoperative state (Acute) Status post thyroidectomy (Acute) Atrial fibrillation (Chronic) DNR (do not resuscitate) (Chronic) DVT prophylaxis (Chronic) Graves disease (Chronic) QT prolongation (Chronic) Plan: Hypocalcemia (Acute)Postoperative state (Acute)Status post thyroidectomy (Acute ) Hypoparathyroidism: She is day 7 post subtotal thyroidectomy. She is requiring calcitriol and calcium carbonate support to maintain her calcium levels. Temporary parathyroid hormone deficiency following thyroid surgery is common. Permanent hypoparathyroidism is less common. I recommend we increase the calctriol to 0.25 mcg twice daily. In addition, I recommend starting indapamide as this will reduce the calcium excretion in the urine (a property of thiazide diuretics). I agree with the calcium carbonate suspension. No parathyroid glands were described in the pathology specimen, so I suspect this is going to be temporary Graves disease (Chronic) She is now hypothyroid and taking the calculated replacement dose of levothryoxine 125 mcg qdaily. I discussed the above with the patient and she agrees with the plan.
[2017-08-25] MEDS ORDERED: Magnesium Sulfate 2 GM IV* 2 GM/50 ML BAG IVPB ONE (09:48)
[2017-08-25] MEDS: Metoprolol Succinate XL TAB* 50 MG PO SCH ×2 (09:51→20:31)
[2017-08-25] MEDS: Magnesium Oxide TAB* 400 MG PO SCH (09:51)
[2017-08-25] MEDS: Calcitriol CAP* 0.25 MCG PO SCH ×2 (10:30→20:32)
[2017-08-25] MEDS ORDERED: Docusate CAP* 100 MG PO PRN (13:00)
[2017-08-25] MEDS ORDERED: Magnesium Hydroxide LIQ* 30 ML UDC PO PRN (13:01)
[2017-08-25] MEDS: Warfarin TAB(*) 6 MG PO SCH (17:06)
[2017-08-25] MEDS: HYDROcodone/ACET. 7.5/325 LIQ* 15 ML UDC PO PRN (20:32)
[2017-08-26] MEDS: Calcium Carbonate LIQ* 1,250 MG/5 ML UDC PO SCH ×6 (01:45→20:48)
[2017-08-26] MEDS: HYDROcodone/ACET. 7.5/325 LIQ* 15 ML UDC PO PRN (03:39)
[2017-08-26] MEDS: Levothyroxine TAB* 125 MCG TAB PO SCH (05:25)
[2017-08-26] MEDS: Omeprazole CAP* 20 MG PO SCH (05:25)
[2017-08-26 05:58] LABS: ABS Basophils 0.1 10^3/ul (0-0.2); ABS Eosinophils 0.5 10^3/ul (0-0.6); ABS Lymphocytes 3.2 10^3/ul (1.0-4.8); ABS Monocytes 0.7 10^3/ul (0-0.8); ABS Neutrophils 5.3 10^3/ul (1.5-7.7); ABS Nucleated RBC 0 10^3/ul; Eosinophil % 5.2 % (0-6); Hematocrit 38 % (35-47); Hemoglobin 12.7 g/dl (12.0-16.0); Lymphocyte % 33.3 % (25-47); Mean Corpuscular HGB Conc 33 g/dl (31-36); Mean Corpuscular Hemoglobin 27 pg (27-31); Mean Corpuscular Volume 79 fL (80-97); Nucleated Red Blood Cells % 0.1; Platelet Count 291 10^3/ul (150-450); Red Blood Count 4.79 10^6/ul (4.00-5.40); Red Cell Distribution Width 17 % (10.5-15); White Blood Count 9.7 10^3/ul (3.5-10.8)
[2017-08-26 06:03] LABS: INR 1.35 (0.77-1.02)
[2017-08-26 06:22] LABS: EGFR Non-African American 92.1 (>60)
[2017-08-26] MEDS: Magnesium Oxide TAB* 400 MG PO SCH (08:55)
[2017-08-26] MEDS: Calcitriol CAP* 0.25 MCG PO SCH ×2 (08:55→20:48)
[2017-08-26] MEDS: Potassium Chlor TAB* 20 MEQ TAB.ER PO SCH (08:55)
[2017-08-26] MEDS: Metoprolol Succinate XL TAB* 50 MG PO SCH ×2 (08:55→20:48)
[2017-08-26] MEDS: Indapamide TAB* 2.5 MG PO SCH (08:55)
[2017-08-26] MEDS: Calcium CHLORIDE 10% SYRINGE* 1 GM in D5W 100 ML BAG* 100 ML IV PRN ×2 (09:08→16:10)
--- NOTE | 2017-08-26 16:16 | PN ---
Progress Note - Progress Note Date of Service: 08/26/17 Note: Surgery (late entry- pt. seen at ~11AM Appreciate Dr. Brewer's input. Ms. Smith reports she is doing okay. She denies numbness or tingling. She notes the pain in her arm is still present, but better. Vital Signs 08/25/17 08/25/17 08/25/17 19:31 19:44 20:32 Temperature 98.5 F Pulse Rate 84 Respiratory 16 20 18 Rate Blood Pressure 133/78 (mmHg) O2 Sat by Pulse 98 Oximetry 08/25/17 08/25/17 08/26/17 23:00 23:18 03:32 Temperature 97.9 F 98.2 F Pulse Rate 80 92 Respiratory 18 16 24 Rate Blood Pressure 117/66 128/67 (mmHg) O2 Sat by Pulse 97 98 Oximetry 08/26/17 08/26/17 08/26/17 03:39 05:40 07:30 Temperature 97.7 F Pulse Rate 85 Respiratory 20 16 20 Rate Blood Pressure 114/61 (mmHg) O2 Sat by Pulse 97 Oximetry 08/26/17 08/26/17 08:00 11:09 Temperature 97.4 F Pulse Rate 91 Respiratory 18 20 Rate Blood Pressure 116/63 (mmHg) O2 Sat by Pulse 97 Oximetry Incision site: some ecchymosis, no signs infection Neg. [place] sign, right forearm with less erythema at IV infiltration site. Laboratory Results - last 24 hr 08/25/17 08/26/17 08/26/17 20:23 01:51 05:35 WBC RBC Hgb Hct MCV MCH MCHC RDW Plt Count MPV Neut % (Auto) Lymph % (Auto) [place] % (Auto) Eos % (Auto) Baso % (Auto) Absolute Neuts (auto) Absolute Lymphs (auto) Absolute Monos (auto) Absolute Eos (auto) Absolute Basos (auto) Absolute Nucleated RBC Nucleated RBC % INR (Anticoag Therapy) Sodium 138 Potassium 4.2 Chloride 104 Carbon Dioxide 26 Anion Gap 8 BUN 15 Creatinine 0.65 Est GFR ( Amer) 111.4 Est GFR (Non-Af Amer) 92.1 BUN/Creatinine Ratio 23.1 H Glucose 94 Calcium 8.1 L 8.0 L 7.9 L Magnesium 2.0 08/26/17 08/26/17 08/26/17 05:35 05:35 13:30 WBC 9.7 RBC 4.79 Hgb 12.7 Hct 38 MCV 79 L MCH 27 MCHC 33 RDW 17 H Plt Count 291 MPV 8.0 Neut % (Auto) 53.9 Lymph % (Auto) 33.3 [place] % (Auto) 6.8 Eos % (Auto) 5.2 Baso % (Auto) 0.8 Absolute Neuts (auto) 5.3 Absolute Lymphs (auto) 3.2 Absolute Monos (auto) 0.7 Absolute Eos (auto) 0.5 Absolute Basos (auto) 0.1 Absolute Nucleated RBC 0 Nucleated RBC % 0.1 INR (Anticoag Therapy) 1.35 H Sodium Potassium Chloride Carbon Dioxide Anion Gap BUN Creatinine Est GFR ( Amer) Est GFR (Non-Af Amer) BUN/Creatinine Ratio Glucose Calcium 7.8 L Magnesium A/P POD#7 s/p thyroidectomy; with hypocalcemia post op. Improving, but still requires IV Calcium today. Will continue to monitor; would like to see Calcium stable on oral meds for at least 24 hours before d/c. I will be away this coming week. VERN to cover. Ms. Smith aware.
--- NOTE | 2017-08-26 17:01 | PN ---
Subjective Date of Service: 08/26/17 Interval History: Patient seen and examined at bedside. Denies fever, chills, shortness of breath , chest discomfort, N/V/D. Pt states that her neck pain is well controlled. Her arm pain is improving, she continues to have some areas of induration at the sites of her IV calcium infiltrations. Tele: A fib, 80-100's Family History: Unchanged from Admission Social History: Unchanged from Admission Past Medical History: Unchanged from Admission Objective Active Medications: Acetaminophen (Tylenol Adult Liq*) 650 mg PO Q6H PRN Reason: HEADACHE/PAIN Hydrocodone Bitart/Acetaminophen (Nortab 7.5/325 Liq*) 5 ml PO Q4H PRN Reason: PAIN Calcitriol (Rocaltrol Cap*) 0.25 mcg PO BID JAMES Calcium Carbonate (Calcium Carbonate Liq*) 1,250 mg PO Q4H JAMES Docusate Sodium (Colace Cap*) 100 mg PO DAILY PRN Reason: CONSTIPATION Heparin Sodium (Porcine) (Heparin Flush Picc/Ml/Cvc(*)) 1 - 3 ml FLUSH 0600, 1800 [facility]; Protocol Calcium Chloride 1 gm/ (Dextrose) 110 mls @ 55 mls/hr IV Q6H PRN Reason: IF CALCIUM LAB VALUE < 8 Indapamide (Lozol Tab*) 2.5 mg PO DAILY [facility] Levothyroxine Sodium (Synthroid Tab*) 125 mcg PO DAILY@0600 [facility] Magnesium Hydroxide (Milk Of Magnesia Liq*) 30 ml PO BID PRN Reason: CONSTIPATION Magnesium Oxide (Magox 400 Tab*) 400 mg PO DAILY [facility] Metoprolol Succinate (Toprol Xl Tab*) 50 mg PO BID JAMES Omeprazole (Prilosec Cap*) 20 mg PO 0600 [facility] Ondansetron HCl (Zofran Inj*) 4 mg IV Q6H PRN Reason: NAUSEA Potassium Chloride (Klor Con Er Tab*) 20 meq PO DAILY [facility] Warfarin Sodium (Coumadin Tab(*)) 6 mg PO SuTuThSa@1700 [facility]; Protocol Warfarin Sodium (Coumadin Tab(*)) 2.5 mg PO MoWeFr@1700 [facility] Warfarin Sodium (Coumadin Tab(*)) 4 mg PO MoWeFr@1700 [facility] Vital Signs - 8 hr 08/26/17 08/26/17 11:09 15:15 Temperature 97.4 F 99.5 F Pulse Rate 91 100 Respiratory 20 20 Rate Blood Pressure 116/63 95/56 (mmHg) O2 Sat by Pulse 97 97 Oximetry Oxygen Devices in Use Now: None Appearance: NAD, laying in bed Ears/Nose/Mouth/Throat: Mucous Membranes Moist Respiratory: Symmetrical Chest Expansion and Respiratory Effort, Clear to Auscultation Cardiovascular: NL Sounds; No Murmurs; No JVD, RRR Abdominal: NL Sounds; No Tenderness; No Distention Extremities: No Edema Skin: No Rash or Ulcers Neurological: Alert and Oriented x 3, NL Muscle Strength and Tone Lines/Tubes/Other Access: Clean, Dry and Intact Peripheral IV - site benign Nutrition: Taking PO's Result Diagrams: 08/26/17 05:35 08/26/17 05:35 Assess/Plan/Problems-Billing Assessment: Ms. Leone is a 62yo female with a PMH for graves disease, Afib, who is S/P subtotal thyroidectomy which was complicated by hypocalcemia which is persistent and is being replaced with IV and PO calcium. - Patient Problems (1) Hypocalcemia Code(s): E83.51 - HYPOCALCEMIA SNOMED Code(s): 0941985 Comment: - Improving, but persistent despite oral and IV replacement. Managment per primary team - QTc prolonged but improving - Infiltration of 2 IVs without calcinosis cutis. Treated with Hyaluronidase - Continue to monitor and replace. Magnesium replaced to help with absorption of calcium (2) Status post thyroidectomy Code(s): E89.0 - POSTPROCEDURAL HYPOTHYROIDISM SNOMED Code(s): 219768061 Comment: - POD #7, management per general surgery - No other surgical complications - Continue synthroid for post-surgical hypothyroidism (3) Atrial fibrillation Code(s): I48.91 - UNSPECIFIED ATRIAL FIBRILLATION SNOMED Code(s): 96153332 Comment: - Persistent Afib, improving rate control - Rate well controlled - Continue warfarin and monitor INR, and Metoprolol Succinate (increased dose) - Follow with cardiology outpatient (4) QT prolongation Code(s): R94.31 - ABNORMAL ELECTROCARDIOGRAM [ECG] [EKG] SNOMED Code(s): 968537501 Comment: - Improving - Suspect secondary to hypocalcemia and hypomagnesemia - Metoprolol will suppress ectopic beats - Continue to replace magnesium and Calcium (5) Hypomagnesemia Code(s): E83.42 - HYPOMAGNESEMIA SNOMED Code(s): 204823251 Comment: - Resolved (6) Graves disease Code(s): E05.00 - THYROTOXICOSIS W DIFFUSE GOITER W/O THYROTOXIC CRISIS SNOMED Code(s): 963902464 Comment: - History, now s/p thyroidectomy (7) DVT prophylaxis Code(s): VXC6409 - SNOMED Code(s): 454390127 Comment: - Heparin SubQ (8) DNR (do not resuscitate) Status and Disposition: Inpatient for IV calcium and Monitoring. Disposition per primary team when medically stable. Thank you for this consultation, we will continue to follow along.
[2017-08-26] MEDS: Warfarin TAB(*) 2.5 MG PO SCH (17:24)
[2017-08-26] MEDS: Warfarin TAB(*) 4 MG PO SCH (17:26)
[2017-08-27] MEDS: Calcium Carbonate LIQ* 1,250 MG/5 ML UDC PO SCH ×6 (01:14→20:11)
[2017-08-27] MEDS: HYDROcodone/ACET. 7.5/325 LIQ* 15 ML UDC PO PRN ×2 (01:18→23:31)
[2017-08-27] MEDS: Omeprazole CAP* 20 MG PO SCH (05:38)
[2017-08-27] MEDS: Levothyroxine TAB* 125 MCG TAB PO SCH (05:38)
[2017-08-27 05:59] LABS: INR 1.42 (0.77-1.02)
--- NOTE | 2017-08-27 08:03 | PN ---
Progress Note - Progress Note Date of Service: 08/27/17 Note: Hypocalcemia s/p thyroidectomy Afeb Feels well, no pain Denies numbness/tingling Ca 8.4 this AM Last infusion yest sandra. Neck site w/ mild swelling, no infection Disch home once Ca >8 for 24 hrs of oral replacement
[2017-08-27] MEDS: Potassium Chlor TAB* 20 MEQ TAB.ER PO SCH (09:55)
[2017-08-27] MEDS: Magnesium Oxide TAB* 400 MG PO SCH (09:55)
[2017-08-27] MEDS: Calcitriol CAP* 0.25 MCG PO SCH ×2 (09:55→20:10)
[2017-08-27] MEDS: Metoprolol Succinate XL TAB* 50 MG PO SCH ×2 (10:36→20:10)
[2017-08-27] MEDS: Indapamide TAB* 2.5 MG PO SCH (10:36)
--- NOTE | 2017-08-27 14:17 | PN ---
Subjective Date of Service: 08/27/17 Interval History: Patient seen and examined at bedside. Denies fever, chills, shortness of breath , chest discomfort, N/V/D. Pt states that she continues to have pain at her IV infiltration site. She is excited for possible discharge to home in the AM. Tele: Afib, rate 70-100's, Pt with non-sustained tachycardia in to the 150-160' s with ambulation, lasts < 5 minutes Family History: Unchanged from Admission Social History: Unchanged from Admission Past Medical History: Unchanged from Admission Objective Active Medications: Acetaminophen (Tylenol Adult Liq*) 650 mg PO Q6H PRN Reason: HEADACHE/PAIN Hydrocodone Bitart/Acetaminophen (Nortab 7.5/325 Liq*) 5 ml PO Q4H PRN Reason: PAIN Calcitriol (Rocaltrol Cap*) 0.25 mcg PO BID JAMES Calcium Carbonate (Calcium Carbonate Liq*) 1,250 mg PO Q4H JAMES Docusate Sodium (Colace Cap*) 100 mg PO DAILY PRN Reason: CONSTIPATION Heparin Sodium (Porcine) (Heparin Flush Picc/Ml/Cvc(*)) 1 - 3 ml FLUSH 0600, 1800 [facility]; Protocol Calcium Chloride 1 gm/ (Dextrose) 110 mls @ 55 mls/hr IV Q6H PRN Reason: IF CALCIUM LAB VALUE < 8 Indapamide (Lozol Tab*) 2.5 mg PO DAILY [facility] Levothyroxine Sodium (Synthroid Tab*) 125 mcg PO DAILY@0600 [facility] Magnesium Hydroxide (Milk Of Magnesia Liq*) 30 ml PO BID PRN Reason: CONSTIPATION Magnesium Oxide (Magox 400 Tab*) 400 mg PO DAILY [facility] Metoprolol Succinate (Toprol Xl Tab*) 50 mg PO BID JAMES Omeprazole (Prilosec Cap*) 20 mg PO 0600 [facility] Ondansetron HCl (Zofran Inj*) 4 mg IV Q6H PRN Reason: NAUSEA Potassium Chloride (Klor Con Er Tab*) 20 meq PO DAILY [facility] Warfarin Sodium (Coumadin Tab(*)) 6 mg PO SuTuThSa@1700 [facility]; Protocol Warfarin Sodium (Coumadin Tab(*)) 2.5 mg PO MoWeFr@1700 [facility] Warfarin Sodium (Coumadin Tab(*)) 4 mg PO MoWeFr@1700 [facility] Vital Signs - 8 hr 08/27/17 08/27/17 08/27/17 07:27 08:00 10:18 Temperature 97.6 F Pulse Rate 86 Respiratory 14 14 Rate Blood Pressure 97/63 112/60 (mmHg) O2 Sat by Pulse 99 Oximetry 08/27/17 08/27/17 11:28 11:29 Temperature 98.0 F Pulse Rate 87 Respiratory Rate Blood Pressure 115/59 (mmHg) O2 Sat by Pulse 98 Oximetry Oxygen Devices in Use Now: None Appearance: NAD, sitting up in bed Ears/Nose/Mouth/Throat: Mucous Membranes Moist Respiratory: Symmetrical Chest Expansion and Respiratory Effort, Clear to Auscultation Cardiovascular: NL Sounds; No Murmurs; No JVD, - - Heart Rate irregular Abdominal: NL Sounds; No Tenderness; No Distention Extremities: No Edema Skin: No Rash or Ulcers, - - Incision to anterior neck well approximated and open to air Neurological: Alert and Oriented x 3, NL Muscle Strength and Tone Lines/Tubes/Other Access: Clean, Dry and Intact Peripheral IV - site benign Nutrition: Taking PO's Result Diagrams: 08/26/17 05:35 08/26/17 05:35 Assess/Plan/Problems-Billing Assessment: Ms. Leone is a 62yo female with a PMH for graves disease, Afib, who is S/P subtotal thyroidectomy which was complicated by hypocalcemia which is persistent and is being replaced with IV and PO calcium. - Patient Problems (1) Hypocalcemia Code(s): E83.51 - HYPOCALCEMIA SNOMED Code(s): 1159413 Comment: - Improving, now on oral replacement - Managment per primary team - QTc prolonged but improving - Infiltration of 2 IVs without calcinosis cutis. Treated with Hyaluronidase - Continue to monitor and replace (2) Status post thyroidectomy Code(s): E89.0 - POSTPROCEDURAL HYPOTHYROIDISM SNOMED Code(s): 489578110 Comment: - POD #8, management per general surgery - No other surgical complications - Continue synthroid for post-surgical hypothyroidism (3) Atrial fibrillation Code(s): I48.91 - UNSPECIFIED ATRIAL FIBRILLATION SNOMED Code(s): 11958223 Comment: - Persistent Afib, rate controlled at rest, often tachy with ambulation but nonsustained - Continue warfarin and monitor INR, and Metoprolol Succinate (increased dose) - Follow with cardiology outpatient (4) QT prolongation Code(s): R94.31 - ABNORMAL ELECTROCARDIOGRAM [ECG] [EKG] SNOMED Code(s): 367203451 Comment: - Improving - Suspect secondary to hypocalcemia and hypomagnesemia - Metoprolol will suppress ectopic beats - Continue to replace magnesium and Calcium (5) Hypomagnesemia Code(s): E83.42 - HYPOMAGNESEMIA SNOMED Code(s): 272014313 Comment: - Resolved (6) Graves disease Code(s): E05.00 - THYROTOXICOSIS W DIFFUSE GOITER W/O THYROTOXIC CRISIS SNOMED Code(s): 610707043 Comment: - History, now s/p thyroidectomy (7) DVT prophylaxis Code(s): OWH6911 - SNOMED Code(s): 895948782 Comment: - Heparin SubQ (8) Full code status Code(s): Z78.9 - OTHER SPECIFIED HEALTH STATUS SNOMED Code(s): 818861521 Status and Disposition: Inpatient for IV calcium and Monitoring. Disposition per primary team when medically stable. Thank you for this consultation, we will continue to follow along.
[2017-08-27] MEDS: Calcium CHLORIDE 10% SYRINGE* 1 GM in D5W 100 ML BAG* 100 ML IV PRN (16:01)
[2017-08-27] MEDS: Warfarin TAB(*) 6 MG PO SCH (16:50)
[2017-08-28] MEDS: Calcium Carbonate LIQ* 1,250 MG/5 ML UDC PO SCH ×6 (00:45→21:12)
[2017-08-28] MEDS: Levothyroxine TAB* 125 MCG TAB PO SCH (05:52)
[2017-08-28] MEDS: Omeprazole CAP* 20 MG PO SCH (05:53)
--- NOTE | 2017-08-28 08:10 | PN ---
Subjective Date of Service: 08/28/17 Interval History: Patient seen and examined at bedside. Denies fever, chills, shortness of breath , chest discomfort, N/V/D. Pt continues to have discomfort at IV calcium infiltration sites. Minimal neck discomfort. Pt is discouraged that she needed to have IV Calcium yesterday afternoon and is anxious for discharge. Tele: Afib, rate 80's. Pt noted to be tachy into the 110's with ambulation Family History: Unchanged from Admission Social History: Unchanged from Admission Past Medical History: Unchanged from Admission Objective Active Medications: Acetaminophen (Tylenol Adult Liq*) 650 mg PO Q6H PRN Reason: HEADACHE/PAIN Hydrocodone Bitart/Acetaminophen (Nortab 7.5/325 Liq*) 5 ml PO Q4H PRN Reason: PAIN Calcitriol (Rocaltrol Cap*) 0.25 mcg PO BID JAMES Calcium Carbonate (Calcium Carbonate Liq*) 1,250 mg PO Q4H [facility] Docusate Sodium (Colace Cap*) 100 mg PO DAILY PRN Reason: CONSTIPATION Heparin Sodium (Porcine) (Heparin Flush Picc/Ml/Cvc(*)) 1 - 3 ml FLUSH 0600, 1800 [facility]; Protocol Calcium Chloride 1 gm/ (Dextrose) 110 mls @ 55 mls/hr IV Q6H PRN Reason: IF CALCIUM LAB VALUE < 8 Indapamide (Lozol Tab*) 2.5 mg PO DAILY [facility] Levothyroxine Sodium (Synthroid Tab*) 125 mcg PO DAILY@0600 [facility] Magnesium Hydroxide (Milk Of Magnesia Liq*) 30 ml PO BID PRN Reason: CONSTIPATION Magnesium Oxide (Magox 400 Tab*) 400 mg PO DAILY [facility] Metoprolol Succinate (Toprol Xl Tab*) 50 mg PO BID JAMES Omeprazole (Prilosec Cap*) 20 mg PO 0600 [facility] Ondansetron HCl (Zofran Inj*) 4 mg IV Q6H PRN Reason: NAUSEA Potassium Chloride (Klor Con Er Tab*) 20 meq PO DAILY [facility] Warfarin Sodium (Coumadin Tab(*)) 6 mg PO SuTuThSa@1700 [facility]; Protocol Warfarin Sodium (Coumadin Tab(*)) 2.5 mg PO MoWeFr@1700 [facility] Warfarin Sodium (Coumadin Tab(*)) 4 mg PO MoWeFr@1700 [facility] Vital Signs - 8 hr 08/28/17 08/28/17 08/28/17 00:46 00:48 01:51 Temperature 98.2 F Pulse Rate 90 Respiratory 18 16 Rate Blood Pressure 124/72 (mmHg) O2 Sat by Pulse 99 Oximetry 08/28/17 04:24 Temperature 97.6 F Pulse Rate 97 Respiratory 16 Rate Blood Pressure 112/70 (mmHg) O2 Sat by Pulse 100 Oximetry Oxygen Devices in Use Now: None Appearance: NAD, laying in bed Ears/Nose/Mouth/Throat: Mucous Membranes Moist Respiratory: Symmetrical Chest Expansion and Respiratory Effort, Clear to Auscultation Cardiovascular: NL Sounds; No Murmurs; No JVD, - - Heart rate irregular irregular Abdominal: NL Sounds; No Tenderness; No Distention Extremities: No Edema Skin: No Rash or Ulcers, - - Mild erythema and induration to right and left arm at IV infiltration sites Neurological: Alert and Oriented x 3, NL Muscle Strength and Tone Lines/Tubes/Other Access: Clean, Dry and Intact PICC Line - site benign Nutrition: Taking PO's Result Diagrams: 08/26/17 05:35 08/26/17 05:35 Assess/Plan/Problems-Billing Assessment: Ms. Leone is a 62yo female with a PMH for graves disease, Afib, who is S/P subtotal thyroidectomy which was complicated by hypocalcemia which is persistent and is being replaced with IV and PO calcium. - Patient Problems (1) Hypocalcemia Code(s): E83.51 - HYPOCALCEMIA SNOMED Code(s): 2411864 Comment: - Improving, now on oral replacement - Required a dose of IV calcium yesterday afternoon for 7.8 CA+ level - Managment per primary team - QTc prolonged but improving - Infiltration of 2 IVs without calcinosis cutis. Treated with Hyaluronidase - Continue to monitor and replace (2) Status post thyroidectomy Code(s): E89.0 - POSTPROCEDURAL HYPOTHYROIDISM SNOMED Code(s): 131434327 Comment: - POD #9, management per general surgery - No other surgical complications - Continue synthroid for post-surgical hypothyroidism (3) Atrial fibrillation Code(s): I48.91 - UNSPECIFIED ATRIAL FIBRILLATION SNOMED Code(s): 85515743 Comment: - Persistent Afib, rate controlled at rest, often tachy with ambulation but nonsustained - Continue warfarin and monitor INR, and Metoprolol Succinate (increased dose) - Follow with cardiology outpatient (4) QT prolongation Code(s): R94.31 - ABNORMAL ELECTROCARDIOGRAM [ECG] [EKG] SNOMED Code(s): 912705555 Comment: - Improving - Suspect secondary to hypocalcemia and hypomagnesemia - Metoprolol will suppress ectopic beats - Continue to replace magnesium and Calcium (5) Hypomagnesemia Code(s): E83.42 - HYPOMAGNESEMIA SNOMED Code(s): 227317687 Comment: - Resolved (6) Graves disease Code(s): E05.00 - THYROTOXICOSIS W DIFFUSE GOITER W/O THYROTOXIC CRISIS SNOMED Code(s): 363954668 Comment: - History, now s/p thyroidectomy (7) DVT prophylaxis Code(s): YPA1884 - SNOMED Code(s): 576645385 Comment: - Heparin SubQ (8) Full code status Code(s): Z78.9 - OTHER SPECIFIED HEALTH STATUS SNOMED Code(s): 231034984 Status and Disposition: Inpatient for IV calcium and Monitoring. Disposition per primary team when medically stable. Thank you for this consultation, we will continue to follow along.
[2017-08-28] MEDS: Potassium Chlor TAB* 20 MEQ TAB.ER PO SCH (09:04)
[2017-08-28] MEDS: Metoprolol Succinate XL TAB* 50 MG PO SCH ×2 (09:04→21:11)
[2017-08-28] MEDS: Magnesium Oxide TAB* 400 MG PO SCH (09:04)
[2017-08-28] MEDS: Indapamide TAB* 2.5 MG PO SCH (09:04)
[2017-08-28] MEDS: Calcitriol CAP* 0.25 MCG PO SCH ×2 (09:04→21:11)
--- NOTE | 2017-08-28 10:57 | PN ---
Progress Note - Progress Note Date of Service: 08/28/17 SOAP: Subjective: pt seen and neck examined. cc= wants to go home. no numbness, no pain ambulating, tolerating diet last IV dose Ca yesterday midday Objective: Temp Pulse Resp BP Pulse Ox 97.7 F 96 16 118/64 99 08/28/17 07:23 08/28/17 07:23 08/28/17 08:20 08/28/17 08:20 08/28/17 07:23 Intake & Output 08/27/17 08/28/17 08/28/17 22:59 06:59 14:59 Intake Total 770 0 120 Output Total 1350 1000 Balance -580 -1000 120 a and o x3, nad neck, no redness. incision nicely healed Laboratory Last Values WBC 9.7 10^3/ul (3.5-10.8) 08/26/17 05:35 RBC 4.79 10^6/ul (4.00-5.40) 08/26/17 05:35 Hgb 12.7 g/dl (12.0-16.0) 08/26/17 05:35 Hct 38 % (35-47) 08/26/17 05:35 MCV 79 fL (80-97) L 08/26/17 05:35 MCH 27 pg (27-31) 08/26/17 05:35 MCHC 33 g/dl (31-36) 08/26/17 05:35 RDW 17 % (10.5-15) H 08/26/17 05:35 Plt Count 291 10^3/ul (150-450) 08/26/17 05:35 MPV 8.0 um3 (7.4-10.4) 08/26/17 05:35 Neut % (Auto) 53.9 % (38-83) 08/26/17 05:35 Lymph % (Auto) 33.3 % (25-47) 08/26/17 05:35 [place]pp % (Auto) 6.8 % (0-7) 08/26/17 05:35 Eos % (Auto) 5.2 % (0-6) 08/26/17 05:35 Baso % (Auto) 0.8 % (0-2) 08/26/17 05:35 Absolute Neuts (auto) 5.3 10^3/ul (1.5-7.7) 08/26/17 05:35 Absolute Lymphs (auto) 3.2 10^3/ul (1.0-4.8) 08/26/17 05:35 Absolute Monos (auto) 0.7 10^3/ul (0-0.8) 08/26/17 05:35 Absolute Eos (auto) 0.5 10^3/ul (0-0.6) 08/26/17 05:35 Absolute Basos (auto) 0.1 10^3/ul (0-0.2) 08/26/17 05:35 Absolute Nucleated RBC 0 10^3/ul 08/26/17 05:35 Nucleated RBC % 0.1 08/26/17 05:35 INR (Anticoag Therapy) 1.42 (0.77-1.02) H 08/27/17 05:43 Sodium 138 mmol/L (135-145) 08/26/17 05:35 Potassium 4.2 mmol/L (3.5-5.0) 08/26/17 05:35 Chloride 104 mmol/L (101-111) 08/26/17 05:35 Carbon Dioxide 26 mmol/L (22-32) 08/26/17 05:35 Anion Gap 8 mmol/L (2-11) 08/26/17 05:35 BUN 15 mg/dL (6-24) 08/26/17 05:35 Creatinine 0.65 mg/dL (0.51-0.95) 08/26/17 05:35 Est GFR ( Amer) 111.4 (>60) 08/26/17 05:35 Est GFR (Non-Af Amer) 92.1 (>60) 08/26/17 05:35 BUN/Creatinine Ratio 23.1 (8-20) H 08/26/17 05:35 Glucose 94 mg/dL (70-100) 08/26/17 05:35 Calcium 8.5 mg/dL (8.6-10.3) L 08/28/17 08:07 Magnesium 2.0 mg/dL (1.9-2.7) 08/26/17 05:35 Iron 24 ug/dL (50-212) L 08/22/17 14:09 TIBC 258 mcg/dL (250-450) 08/22/17 14:09 % Saturation 9 % (15-55) L 08/22/17 14:09 Unsat Iron Binding 234 ug/dL 08/22/17 14:09 Transferrin 184 mg/dL (203-362) L 08/22/17 14:09 Ferritin 195.2 ng/mL (11-307) 08/22/17 14:09 Assessment: hypocalcemia s./p thyroidectomy no parathyroid tissue in path. specimen Plan: oral Ca+, indapamide continue Ca check. likely d/c home tomorrow
[2017-08-28] MEDS: Warfarin TAB(*) 6 MG PO SCH (17:10)
[2017-08-29] MEDS: Calcium Carbonate LIQ* 1,250 MG/5 ML UDC PO SCH ×5 (01:15→17:13)
--- NOTE | 2017-08-29 05:28 | PN ---
Progress Note - Progress Note Date of Service: 08/29/17 Note: Nursing reports 2.1s pause. Will check BMP & mag this AM.
[2017-08-29] MEDS: Levothyroxine TAB* 125 MCG TAB PO SCH (05:50)
[2017-08-29] MEDS: Omeprazole CAP* 20 MG PO SCH (05:51)
[2017-08-29 07:11] LABS: INR 1.4 (0.77-1.02)
[2017-08-29 07:23] LABS: EGFR Non-African American 83.1 (>60)
[2017-08-29] MEDS: Magnesium Oxide TAB* 400 MG PO SCH (08:18)
[2017-08-29] MEDS: Metoprolol Succinate XL TAB* 50 MG PO SCH (08:18)
[2017-08-29] MEDS: Potassium Chlor TAB* 20 MEQ TAB.ER PO SCH (08:19)
[2017-08-29] MEDS: Indapamide TAB* 2.5 MG PO SCH (08:19)
[2017-08-29] MEDS: Calcitriol CAP* 0.25 MCG PO SCH (08:19)
[2017-08-29 11:50] VITALS: BP 124/78
--- NOTE | 2017-08-29 14:21 | PN ---
Subjective Date of Service: 08/29/17 Interval History: Patient seen and examined. No complaints, states she feels well. Denies chest pain, no SOB, no muscle cramping, no n/v. Family History: Unchanged from Admission Social History: Unchanged from Admission Past Medical History: Unchanged from Admission Objective Active Medications: Acetaminophen (Tylenol Adult Liq*) 650 mg PO Q6H PRN PRN Reason: HEADACHE/PAIN Last Admin: 08/23/17 10:24 Dose: 650 mg Hydrocodone Bitart/Acetaminophen (Nortab 7.5/325 Liq*) 5 ml PO Q4H PRN PRN Reason: PAIN Last Admin: 08/27/17 23:31 Dose: 5 ml Calcitriol (Rocaltrol Cap*) 0.25 mcg PO BID [facility] Last Admin: 08/29/17 08:19 Dose: 0.25 mcg Calcium Carbonate (Calcium Carbonate Liq*) 1,250 mg PO Q4H [facility] Last Admin: 08/29/17 13:29 Dose: 1,250 mg Docusate Sodium (Colace Cap*) 100 mg PO DAILY PRN PRN Reason: CONSTIPATION Heparin Sodium (Porcine) (Heparin Flush Picc/Ml/Cvc(*)) 1 - 3 ml FLUSH 0600, 1800 [facility]; Protocol Last Admin: 08/29/17 05:57 Dose: Not Given Calcium Chloride 1 gm/ (Dextrose) 110 mls @ 55 mls/hr IV Q6H PRN PRN Reason: IF CALCIUM LAB VALUE < 8 Last Admin: 08/27/17 16:01 Dose: 55 mls/hr Indapamide (Lozol Tab*) 2.5 mg PO DAILY [facility] Last Admin: 08/29/17 08:19 Dose: 2.5 mg Levothyroxine Sodium (Synthroid Tab*) 125 mcg PO DAILY@0600 [facility] Last Admin: 08/29/17 05:50 Dose: 125 mcg Magnesium Hydroxide (Milk Of Magnesia Liq*) 30 ml PO BID PRN PRN Reason: CONSTIPATION Last Admin: 08/25/17 15:36 Dose: 30 ml Magnesium Oxide (Magox 400 Tab*) 400 mg PO DAILY [facility] Last Admin: 08/29/17 08:18 Dose: 400 mg Metoprolol Succinate (Toprol Xl Tab*) 50 mg PO BID [facility] Last Admin: 08/29/17 08:18 Dose: 50 mg Omeprazole (Prilosec Cap*) 20 mg PO 0600 [facility] Last Admin: 08/29/17 05:51 Dose: 20 mg Ondansetron HCl (Zofran Inj*) 4 mg IV Q6H PRN PRN Reason: NAUSEA Last Admin: 08/23/17 08:53 Dose: 4 mg Potassium Chloride (Klor Con Er Tab*) 20 meq PO DAILY [facility] Last Admin: 08/29/17 08:19 Dose: 20 meq Warfarin Sodium (Coumadin Tab(*)) 6 mg PO SuTuThSa@1700 [facility]; Protocol Last Admin: 08/28/17 17:10 Dose: 6 mg Warfarin Sodium (Coumadin Tab(*)) 2.5 mg PO MoWeFr@1700 [facility] Last Admin: 08/26/17 17:24 Dose: 2.5 mg Warfarin Sodium (Coumadin Tab(*)) 4 mg PO MoWeFr@1700 [facility] Last Admin: 08/26/17 17:26 Dose: 4 mg Vital Signs - 8 hr 08/29/17 08/29/17 08/29/17 07:38 08:28 11:27 Temperature 97.0 F 97.1 F Pulse Rate 77 84 Respiratory 16 16 Rate Blood Pressure 122/78 (mmHg) O2 Sat by Pulse 100 100 Oximetry 08/29/17 11:49 Temperature Pulse Rate Respiratory Rate Blood Pressure 124/78 (mmHg) O2 Sat by Pulse Oximetry Oxygen Devices in Use Now: None Appearance: Alert, NAD Eyes: No Scleral Icterus, PERRLA Ears/Nose/Mouth/Throat: Clear Oropharnyx, Mucous Membranes Moist Neck: NL Appearance and Movements; NL JVP, Trachea Midline Respiratory: Symmetrical Chest Expansion and Respiratory Effort, Clear to Auscultation Cardiovascular: RRR Extremities: No Edema, No Clubbing, Cyanosis Skin: No Rash or Ulcers Neurological: Alert and Oriented x 3, NL Sensation, NL Muscle Strength and Tone Nutrition: Taking PO's Result Diagrams: 08/26/17 05:35 08/29/17 06:40 Assess/Plan/Problems-Billing Assessment: Ms. Leone is a 62yo female with a PMH for graves disease and Afib, who is S/ P subtotal thyroidectomy which was complicated by hypocalcemia which is persistent and is being replaced with IV and PO calcium. - Patient Problems (1) Hypocalcemia Code(s): E83.51 - HYPOCALCEMIA SNOMED Code(s): 6331242 Comment: - Ca+ continues to be labile with drop to 7.3 today, asymptomatic - Continue oral supplementation - QTc prolonged but continues to improve - Infiltration of 2 IV calcium without calcinosis cutis. Treated with Hyaluronidase, stable - Calcium is likely to fluctuate while she is recovering, needs close outpatient follow up and monitoring (2) Hypomagnesemia Code(s): E83.42 - HYPOMAGNESEMIA SNOMED Code(s): 459539413 Comment: - Resolved (3) Status post thyroidectomy Code(s): E89.0 - POSTPROCEDURAL HYPOTHYROIDISM SNOMED Code(s): 055852720 Comment: - POD10, management per general surgery - Continue synthroid for post-surgical hypothyroidism (4) Atrial fibrillation Code(s): I48.91 - UNSPECIFIED ATRIAL FIBRILLATION SNOMED Code(s): 44859988 Comment: - Persistent Afib, rate controlled at rest, often tachy with ambulation but nonsustained - Continue warfarin and monitor INR, and Metoprolol Succinate - Had 2.3 sec pause on tele, will adjust metoprolol to 50mg in AM and 25mg in PM - Follow with cardiology outpatient (5) Graves disease Code(s): E05.00 - THYROTOXICOSIS W DIFFUSE GOITER W/O THYROTOXIC CRISIS SNOMED Code(s): 660312372 Comment: - History of, now s/p thyroidectomy Status and Disposition: Medically optimized for DC as per general surgery. Discharge Recommendations: - Check lytes in 3 days - Continue oral supplementation with calcium until levels recover - Continue indapamide per Dr. Brewer's recommendation to conserve urinary calcium loss - Follow up with PCP and Dr. Brewer in 1 week Will sign off. Please reconsult as needed.
[2017-08-29] MEDS: Calcium CHLORIDE 10% SYRINGE* 1 GM in D5W 100 ML BAG* 100 ML IV PRN (15:40)
--- NOTE | 2017-08-29 16:57 | PN ---
Progress Note - Progress Note Date of Service: 08/29/17 Note: Surgery Followup S: patient w/o sx of numbness/tingling/spasm. Mayank diet. Denies pain. Had short pause by monitor last night but was asymptomatic. See hospitalist note. O: Vital Signs - 8 hr 08/29/17 08/29/17 08/29/17 11:27 11:49 15:51 Temperature 97.1 F 97.6 F Pulse Rate 84 82 Respiratory 16 18 Rate Blood Pressure 124/78 (mmHg) O2 Sat by Pulse 100 97 Oximetry PE: see discharge summary Labs: Laboratory Tests 08/29/17 08/29/17 08/29/17 03:07 06:40 13:10 Potassium 3.6 Calcium 8.6 8.7 7.3 L Magnesium 2.0 A: hypocalcemia, s/p subtotal thyroidectomy, improved (this afternoon's Ca of 7.3 may be spurious given her lack of symptoms and general clinical trend. P: discussed w/ hospitalist; will d/c home today after one more dose of IV Ca; cont oral regimen as per present. Repeat labs Tue and Tuesday, or sooner if symptomatic. We will leave her PICC in place at least until Tuesday given her difficult access and prior infiltration x 2.
[2017-08-29] MEDS ORDERED: Metoprolol Succinate XL TAB* 25 MG PO SCH (21:00)
--- NOTE | 2017-08-30 03:52 | DS ---
CC: KAREY Beckham, [facility]; Dr. Ender Brewer * DISCHARGE SUMMARY: DATE OF ADMISSION: 08/22/17 DATE OF DISCHARGE: 08/29/17 ATTENDING SURGEON: Brinda Green MD * (DICTATED BY KAREY MONSALVE) HOSPITAL COURSE: Please refer to admission history and physical from the patient's surgery on 08/19/17 and the update from readmission on 08/22/17. Briefly, the patient underwent subtotal thyroidectomy for Graves' disease on with Dr. Green. She was admitted on 08/22/17, with symptoms consistent with hypocalcemia with corroboration by her lab work (serum calcium was 6.5 on admission). The patient has received combination of oral and IV calcium as well as calcitriol with gradual improvement in her serum calcium. She has been asymptomatic for a number of days and did not require IV calcium for over 24 hours. Her serum calcium this morning was 8.7 (normal 8.6 to 10.3) and she is asymptomatic. A repeat calcium at 1310 was 7.3, though I would suspect lab error based on her lack of symptoms and her clinical course. Per discussion with the hospitalist, she will receive 1 more dose of IV calcium and then be discharged on her oral regimen (calcium carbonate liquid 1250 mg q.4 hours and calcitriol 0.25 mcg b.i.d.). In addition, the patient did have a 2-second pause on personnel monitor and therefore, her metoprolol will be decreased to 50 mg q.a.m. and 25 mg q.p.m. She will continue the indapamide 2.5 mg once daily, potassium 20 mEq once daily, and magnesium oxide 400 mg once daily per Dr. Brewer. PHYSICAL EXAMINATION: On exam the day of discharge, the patient is afebrile and vital signs stable (blood pressure 124/78, pulse 82, respirations 18, room air saturation 97%). General: Well-nourished female, in no acute distress. She has a degree of exophthalmos. Skin: Warm and dry. She does have 2 areas of the forearms and both upper extremities from prior IV infiltration with tenderness and induration, which she states has been improving. There is no evidence of infection. PICC line is in place in the right upper extremity. Heart: Irregularly irregular consistent with known atrial fibrillation. Lungs: Clear to auscultation. No rales or wheezes. Anterior neck incision is healing well without evidence of hematoma or infection. IMPRESSION: Hypocalcemia, status post subtotal thyroidectomy, improving. PLAN: Home today with PICC line in place in the event the patient needs additional IV calcium. However, she will continue the oral regimen as outlined above. We will repeat a P3 and serum magnesium on Tuesday and Tuesday, and 09/02/17. If her lab values remain normal, she should be able to have her PICC line removed as soon as 09/02/17. Her case was discussed with Dr. Kumar, who is covering as Dr. Green is away this week. KAREY MONSALVE [id number]/CPS #: [id number] [id number]
[2017-08-30] MEDS ORDERED: Metoprolol Succinate XL TAB* 50 MG PO SCH (09:00)
== END 2017-08-29 18:49 | disposition home or self-care (01) | DRG 425 ==
LOC: SSU 08:28 → OBSVTOIN 08-23 08:28
PROVIDERS: ADMIT Surgery; ATTEND Surgery
DX: E83.51 Hypocalcemia (principal); I48.91 Unspecified atrial fibrillation; E05.00 Thyrotoxicosis with diffuse goiter without thyrotoxic crisis or storm; E83.42 Hypomagnesemia; I10 Essential (primary) hypertension; Z98.890 Other specified postprocedural states; I45.81 Long QT syndrome; E20.9 Hypoparathyroidism, unspecified; Z79.01 Long term (current) use of anticoagulants; Z79.899 Other long term (current) drug therapy; Z88.8 Allergy status to other drugs, medicaments and biological substances; Z82.49 Family history of ischemic heart disease and other diseases of the circulatory system; Z80.9 Family history of malignant neoplasm, unspecified; Z83.79 Family history of other diseases of the digestive system; F17.210 Nicotine dependence, cigarettes, uncomplicated
CPT/HCPCS: 36415; 71045; 80048; 82310; 82565; 82728; 83540; 83550; 83735; 84132; 84520; 85025; 85610; 93005; A9270-GY; C1751; G0378; J2405; J3473; J3475